=== PATIENT | female | born 1955 | race Caucasian/White ===

== ENCOUNTER 2021-04-25 00:58 | Day surgery (SDC) | payer BC, SELFPAY ==
[2021-04-16 12:53] VITALS: BMI 29.5
[2021-04-25 06:15] VITALS: BP 115/59; PULSE 87; RESP 18; TEMP 36; O2SAT 98; BMI 28.8
[2021-04-25] MEDS: LACTATED RINGERS 1,000 ML 150 ML IV CONT (06:46)
[2021-04-25 06:48] LABS: Glucose Point of Care 147 mg/dl (65-105)
--- NOTE | 2021-04-25 07:11 | WPDANESEPPF ---
Anes - Initial Pre Proc Eval Procedure: Operation Date: 04/25/21 07:30 Proposed Procedures p Screening Colonoscopy - Contreras Quinn MD Date/Time: 04/25/21 07:11 Surgeon: Contreras Quinn MD Pre Op Diagnosis: hx of colon polyps Patient Data Age: 65 Gender: F Height: 1.73 m Weight: 86.1 kg Last Vital Signs Temp 36.0 C L 04/25/21 06:15 Pulse 87 04/25/21 06:15 Resp 18 04/25/21 06:15 BP 115/59 L 04/25/21 06:15 Pulse Ox 98 04/25/21 06:15 Allergies Allergy/AdvReac Type Severity Reaction Status Date / Time codeine Allergy Severe Dizziness Verified 04/25/21 06:28 Sulfa (Sulfonamide Allergy Severe Difficulty Verified 04/25/21 06:28 Antibiotics) Breathing Home Medications Medication Instructions Recorded Confirmed Type atorvastatin 40 mg tablet 40 mg PO DAILY #90 tablet 03/27/19 04/25/21 Rx aspirin 81 mg tablet,delayed 81 mg PO DAILY 11/07/19 04/25/21 History release ergocalciferol (vitamin D2) 1,250 1,250 mcg PO WEEKLY 11/07/19 04/25/21 History mcg (50,000 unit) capsule lisinopril 10 mg tablet 10 mg PO DAILY 11/07/19 04/25/21 History lorazepam 1 mg tablet 1 mg PO TID PRN #90 tablet 01/01/20 04/25/21 Rx carvedilol 3.125 mg PO BID 04/16/21 04/25/21 History clopidogrel 75 mg PO DAILY 04/16/21 04/25/21 History estradiol 1 applic VAGINAL 2XW 04/16/21 04/25/21 History insulin glargine [Lantus Solostar 14 unit SUBCUT QPM 04/16/21 04/25/21 History U-100 Insulin] insulin lispro [Humalog KwikPen See Rx Instructions .ROUTE .COMPLEX 04/16/21 04/25/21 History Insulin] Laboratory Tests 04/25/21 06:37 POC Capillary Glucose 147 mg/dl H mg/dl (65-105) Patient hx anesthesia problems: none Family hx anesthesia problems: none Results Review: All pre-operative results and documents have been reviewed as part of the pre-operative evaluation. [facility] Past Medical History Medical History GIL (generalized anxiety disorder) Hyperlipidemia Hypotension Vaginal prolapse Surgical History Surgical History History of hysterectomy History of neck surgery Family History Family History Mother Family history of lung cancer Social History Social History Smoking packs per day: 1 Smoking cigarettes per day: 20.0 Years smoked: 20 Smoking pack-years: 20.00 Smoking status: Former smoker Tobacco type: cigarettes Second hand tobacco smoke exposure: No Alcohol intake: never Substance use: never Substance use type: does not use Living arrangements: with family 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 Informed Consent: The patient's anesthetic plan and its attendant risks and benefits were discussed with the patient/family/POA. Questions were solicited and answers provided to the satisfaction of the patient/family/POA.
--- NOTE | 2021-04-25 07:49 | WPDGICN ---
Assessment and Plan Assessment and plan (1) History of colon polyps: Code(s): Z86.010 - Personal history of colonic polyps Status: Acute Assessment and Plan: Patient has a history of adenomatous colon polyp removed from the colon in 2014. Plan is for surveillance colonoscopy at this time. Further recommendations will be given after endoscopy. GI Consult Note Consult date/time: 04/25/21 07:49 HPI: Carlos Manuel Will is a 65 year old female Presents for screening colonoscopy . patient has a history of adenomatous colon polyp removed from the colon 5 years ago. Her current weight appetite bowel movements are normal. She denies abdominal pain. She has had no bleeding. Patient does have a past history of diabetes. 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 Family history is noncontributory. Review of Systems Review of Systems: All systems reviewed & are unremarkable except as noted in HPI and below PMFSH Past Medical History Medical History (Updated 04/25/21 @ 07:51 by Contreras Quinn MD) GIL (generalized anxiety disorder) Hyperlipidemia Hypotension Vaginal prolapse Surgical History Surgical History History of hysterectomy History of neck surgery Family History Family History Mother Family history of lung cancer Social History Social History Smoking packs per day: 1 Smoking cigarettes per day: 20.0 Years smoked: 20 Smoking pack-years: 20.00 Smoking status: Former smoker Tobacco type: cigarettes Second hand tobacco smoke exposure: No Alcohol intake: never Substance use: never Substance use type: does not use Living arrangements: with family 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 Gender identity (if verbalized by the patient): Female Spiritual care concerns: No Meds Home Medications and Allergies Home Medications Medication Instructions Recorded Confirmed Type atorvastatin 40 mg tablet 40 mg PO DAILY #90 tablet 03/27/19 04/25/21 Rx aspirin 81 mg tablet,delayed 81 mg PO DAILY 11/07/19 04/25/21 History release ergocalciferol (vitamin D2) 1,250 1,250 mcg PO WEEKLY 11/07/19 04/25/21 History mcg (50,000 unit) capsule lisinopril 10 mg tablet 10 mg PO DAILY 11/07/19 04/25/21 History lorazepam 1 mg tablet 1 mg PO TID PRN #90 tablet 01/01/20 04/25/21 Rx carvedilol 3.125 mg PO BID 04/16/21 04/25/21 History clopidogrel 75 mg PO DAILY 04/16/21 04/25/21 History estradiol 1 applic VAGINAL 2XW 04/16/21 04/25/21 History insulin glargine [Lantus Solostar 14 unit SUBCUT QPM 04/16/21 04/25/21 History U-100 Insulin] insulin lispro [Humalog KwikPen See Rx Instructions .ROUTE .COMPLEX 04/16/21 04/25/21 History Insulin] Allergies Allergy/AdvReac Type Severity Reaction Status Date / Time codeine Allergy Severe Dizziness Verified 04/25/21 06:28 Sulfa (Sulfonamide Allergy Severe Difficulty Verified 04/25/21 06:28 Antibiotics) Breathing Vital Signs Vital Signs - 24 hr 04/25/21 06:15 Temperature 96.8 F L Pulse Rate 87 Respiratory Rate 18 Blood Pressure 115/59 L Pulse Oximetry 98 Exam Narrative: Physical exam reveals patient to be alert. Vital signs stable. HEENT exam is unremarkable. Patient is anicteric. Lungs are clear to auscultation and percussion. Heart is without murmur or extra sounds. Abdominal exam bowel sounds are present soft nontender with no organomegaly. Digital external rectal exam is normal.
[2021-04-25 07:52] VITALS: BP 90/47; PULSE 58; RESP 18; O2SAT 97
[2021-04-25 08:02] VITALS: BP 96/58; PULSE 55; RESP 13; O2SAT 97
[2021-04-25 08:02] LABS: Glucose Point of Care 114 mg/dl (65-105)
[2021-04-25 08:12] VITALS: BP 125/53; PULSE 61; RESP 25; O2SAT 98
== END 2021-04-25 08:18 | disposition home or self-care (01) ==
PROVIDERS: PCP Family Medicine; Visit Provider Internal Medicine Gastroenterology
PROC: 0DJD8ZZ Inspection of Lower Intestinal Tract, Via Natural or Artificial Opening Endoscopic (ICD-10-PCS; CPT 45378; principal; 2021-04-25 07:30)
DX: Z12.11 Encounter for screening for malignant neoplasm of colon (principal); Z86.010 Personal history of colon polyps; K64.8 Other hemorrhoids; K57.30 Diverticulosis of large intestine without perforation or abscess without bleeding; F41.1 Generalized anxiety disorder; E78.5 Hyperlipidemia, unspecified; I95.9 Hypotension, unspecified; Z86.73 Personal history of transient ischemic attack (TIA), and cerebral infarction without residual deficits; Z87.891 Personal history of nicotine dependence; Z79.82 Long term (current) use of aspirin; Z79.4 Long term (current) use of insulin
CPT/HCPCS: 45378; 82948; J2704; J7120

== ENCOUNTER 2024-12-22 23:23 | Emergency (ER) | payer MEDICARE, SELFPAY ==
--- OUTSIDE RECORDS SUMMARY | 2024-12-22 23:25 | XMS_ITS | Encounter Summary ---
Author Organization [facility] Address [facility] [place] [address] Care Team Providers Care Cyber Security Instructor Name Role Phone Luz Maria Jain MD Primary Care Provider + [phone] Donnie Briones MD Unavailable [phone] Micheal Peace MD Primary Care Provider + [phone] Micheal Peace MD Primary Care Provider + [phone] Encounter Details Date Type Department Care Team (Late Contact Info) Description 06/14/2019 Abstract [facility] at [facility], [address] [address] Leti Fung MA Social History Tobacco Use Types Packs/Day Years Used Date Smoking Tobacco: Every Day Cigarettes Smokeless Tobacco: Never Alcohol Use Standard Drinks/Week Comments No 0 (1 standard drink = 0.6 oz pur e alcohol) AUDIT-C Answer Date Recorded Frequency of Alcohol Consumption Never 05/12/2019 Average Number of Drinks Not on file 020 Frequency of Binge Drinking Not on file 07/2019 Comments No Sex and Gender Information Value Date Recorded Sex Assigned at Female 02/17/2020 1:51 AM CDT Legal Sex Female 4:05 PM CDT Gender Identity Female 02/17/2020 1:51 AM CDT Sexual Orientation Not on file documented as of this encounter Plan of Treatment Upcoming Encounters Date Type Department Care Team (Late Contact Info) Description 01/01/2025 8:20 AM CDT Appointment [facility] Mammography [address] [place], [place] [phone] Kamla Murphy MD [address] [place] [phone] documented as of this encounter Procedures Procedure Name Priority Date/Time Associated Diagnosis Comments PROTIME (OUTSIDE LAB) Routine 07/05/2019 CBC (OUTSIDE LAB) Routine 07/05/2019 BASIC METABOLIC PANEL Routine 07/05/2019 PROTIME (OUTSIDE LAB) Routine 06/13/2019 CBC (OUTSIDE LAB) Routine 06/13/2019 BASIC METABOLIC PANEL Routine 06/13/2019 PROTIME (OUTSIDE LAB) Routine 05/30/2017 CBC (OUTSIDE LAB) Routine 05/30/2017 CBC (OUTSIDE LAB) Routine 05/30/2017 BASIC METABOLIC PANEL Routine 05/30/2017 LIPID PANEL Routine 05/30/2017 THYROXINE, FREE (FT4) Routine 05/30/2017 THYROID STIM HORMONE TSH Routine 05/30/2017 documented in this encounter Results * CBC (OUTSIDE LAB) (07/05/2019) WBC 5.3 HGB 13.3 HCT 40.9 PLT 147 07/05/2019 us Doc [facility] Abstract LAB-OUTSIDE/ABSTRACTED Final Result * PROTIME (OUTSIDE LAB) (07/05/2019) PROTIME 9.9 INR 1.0 07/05/2019 us Doc [facility] Abstract LAB-OUTSIDE/ABSTRACTED Final Result * (ABNORMAL) BASIC METABOLIC PANEL (07/05/2019) Pathologist [facility] SODIUM S/P/B 138 POTASSIUM S/P/B 5.1 CO2 23 CHLORIDE S/P/B 107 GLUCOSE 157 mg/dL CALCIUM S/P/B 9.0 BUN 30 CREATININE S/P/B 1.58(A) 0.5 - 1.0 EGFR AFR. AMER. 41 <=90 EGFR NON-AFR. AMER. 35 <=90 07/05/2019 us Doc [facility]AT[facility] Final Result * PROTIME (OUTSIDE LAB) (06/13/2019) Pathologist [facility] PROTIME 10.0 INR 1.0 06/13/2019 Doc [facility] Abstract LAB-OUTSIDE/ABSTRACTED Final Result * CBC (OUTSIDE LAB) (06/13/2019) Pathologist [facility] WBC 4.6 3.8 - 10.8 HGB 12.7 11.7 - 15.5 HCT 38.2 35.0 - 45.0 PLT 195 140 - 400 06/13/2019 Doc [facility] Abstract LAB-OUTSIDE/ABSTRACTED Final Result * (ABNORMAL) BASIC METABOLIC PANEL (06/13/2019) Pathologist [facility] SODIUM S/P/B 140 135 - 146 POTASSIUM S/P/B 5.2 3.5 - 5.3 CO2 25 20 - 32 CHLORIDE S/P/B 107 98 - 110 GLUCOSE 185 65 - 99 mg/dL CALCIUM S/P/B 8.9 8.6 - 10.4 BUN 19 7 - 25 CREATININE S/P/B 1.49(A) 0.5 - 1.0 EGFR AFR. AMER. 43 <=90 EGFR NON-AFR. AMER. 38 <=90 06/13/2019 us Doc [facility] LAB[facility] Final Result * THYROID STIM HORMONE, TSH (05/30/2017) TSH Comment:error,deleted 05/30/2017 us Doc [facility] LAB[facility] Edited Resul t - Final * CBC (OUTSIDE LAB) (05/30/2017) WBC Comment:error,deleted 05/30/2017 us Doc [facility] LAB-OUTSIDE/ABSTRACTED Edite d Result - Final * LIPID PANEL (05/30/2017) CHOLESTEROL Comment:error,deleted 05/30/2017 us Doc [facility] LABORAT[facility] Edited Resul t - Final * THYROXINE, FREE (FT4) (05/30/2017) FREE T4 Comment:error,deleted 05/30/2017 us Doc [facility] LAB[facility]AT[facility] Edited Resul t - Final * CBC (OUTSIDE LAB) (05/30/2017) WBC Comment:error,deleted 05/30/2017 us Doc [facility] LAB-OUTSIDE/ABSTRACTED Edite d Result - Final * PROTIME (OUTSIDE LAB) (05/30/2017) PROTIME Comment:error,deleted 05/30/2017 us Doc [facility] LAB-OUTSIDE/ABSTRACTED Edite d Result - Final * BASIC METABOLIC PANEL (05/30/2017) SODIUM S/P/B Comment:error,deleted 05/30/2017 us Doc [facility] LABORATORY Edited Resul t - Final documented in this encounter Visit Diagnoses Not on filedocumented in this encounter Care Teams Cyber Security Instructor Relationship Specialty Start Date End Date Luz Maria Jain MD PCP - General FAMILY PRACTICE 10/06/18 07/25/20 Micheal Peace MD [address] [address] [place] [address] PCP - General FAMILY PRACTICE 07/26/20 11/29/22 Micheal Peace MD [address] [place] [address] PCP - General FAMILY PRACTICE 11/30/22 Donnie Briones MD [address] [place] [address] [place] [employer] Director CARDIOVASCULAR DISEASE 05/11/19 documented as of this encounter
--- OUTSIDE RECORDS SUMMARY | 2024-12-22 23:25 | XMS_ITS | Encounter Summary ---
Author Organization [facility] Address [facility] [place] [address] Care Team Providers Care Webfocus Developer Name Role Phone Donnie Briones MD Unavailable [phone] Micheal Peace MD Primary Care Provider [phone] Micheal Peace MD Primary Care Provider [phone] Encounter Details Date Type Department Care Team (Late st Contact Info) Description 03/10/2021 Hospital Orders Only [facility] Rail Operations Controller [address] [place], [place] [phone] Ankit Bahena MD [address] [facility] [place] [address] Social History Tobacco Use Types Packs/Day Years Used Date Smoking Tobacco: Former Cigarettes Q uit: 06/10/2019 Smokeless Tobacco: Never Alcohol Use Standard Drinks/Week Comments No 0 (1 standard drink = 0.6 oz pur e alcohol) AUDIT-C Answer Date Recorded Frequency of Alcohol Consumption Never 05/12/2019 Average Number of Drinks Not on file 020 Frequency of Binge Drinking Not on file 07/2019 PHQ-2 Answer Date Recorded PHQ-2 Score - If the patient scores above 3, please move on to questions 3-9 0 03/07/2020 Comments No Sex and Gender Information Value Date Recorded Sex Assigned at Female 02/17/2020 1:51 AM CDT Legal Sex Female 4:05 PM CDT Gender Identity Female 02/17/2020 1:51 AM CDT Sexual Orientation Not on file Occupation Industry Job Start Date Job End Date Not on file Not on file Not on file Not on file COVID-19 Exposure Response Date Recorded In the last month, have you been in contact with someone who was confirmed or suspected to have Coronavirus / COVID-19? No / Unsure 03/11/2021 7:47 AM CDT documented as of this encounter Functional Status * RETIRED Are you deaf or do you have serious difficulty hearing Answer Date of Assessment Author Status No 02/17/2020 2:10 AM CDT Activ e * RETIRED Are you blind or do you have serious difficulty seeing, even when wearing glasses? Answer Date of Assessment Author Status No 02/17/2020 2:10 AM CDT Activ e * Do you have serious difficulty walking or climbing stairs? Answer Date of Assessment Author Status Yes 02/17/2020 2:10 AM CDT Misha Anderson RN Active * Do you have difficulty dressing or bathing? Answer Date of Assessment Author Status No 02/17/2020 2:10 AM SILVIAT Misha Anderson RN Active * Because of a physical, mental, or emotional condition, do you have difficulty doing errands alone such as visiting a doctor's office or shopping? Answer Date of Assessment Author Status No 02/17/2020 2:10 AM SILVIAT Misha Anderson RN Active * Calculated C-SSRS Risk Score (Lifetime/Recent) Answer Date of Assessment Author Status No Risk Indicated 03/11/2021 9:21 AM CDT Brianna Garcia RN Active * [place] Suicide Severity Rating Scale (Screener/Recent Self-Report) Question Answer Date of Assessment Author Status 1. Wish to be (Past 1 Month) No 03/11/2021 9:21 AM CDT Brianna Garcia RN Activ e 2. Non-Specific Active Suicidal Thoughts (Past 1 Month) No 03/11/2021 9:21 AM CDT Brianna Garcia RN Activ e 6. Suicidal Behavior (Lifetime) No 03/11/2021 9:21 AM CDT Brianna Garcia RN Activ e documented as of this encounter Mental Status * Because of a physical, mental, or emotional condition, do you have serious difficulty concentrating, remembering, or making decisions? Answer Entry Date Author Status No 07/14/2019 6:20 PM Goldie Knight RN Active documented in this encounter Plan of Treatment Upcoming Encounters Date Type Department Care Team (Late st Contact Info) Description 01/01/2025 8:20 AM CDT Appointment [facility] Mammography [address] [place], [place] [phone] Kamla Murphy MD [address] [place], [place] [phone] documented as of this encounter Visit Diagnoses Not on filedocumented in this encounter Care Teams Webfocus Developer Relationship Specialty Start Date End Date Micheal Peace MD [address] [facility] [address] [place] [phone] PCP - General FAMILY PRACTICE 07/26/20 11/29/22 Micheal Peace MD [address] [facility] [address] [place] [phone] PCP - General FAMILY PRACTICE 11/30/22 Donnie Briones MD [address] [facility] [address] [place] [phone] Broadbent Pasteuriser Operator CARDIOVASCULAR DISEASE 05/11/19 documented as of this encounter
--- OUTSIDE RECORDS SUMMARY | 2024-12-22 23:25 | XMS_ITS | Encounter Summary ---
Author Organization [facility] Address [facility] [place] [address] Care Team Providers Care Middle School Coach Name Role Phone Luz Maria Jain MD Primary Care Provider + [phone] Donnie Briones MD Unavailable [phone] Micheal Pecae MD Primary Care Provider + [phone] Micheal Peace MD Primary Care Provider + [phone] Encounter Details Date Type Department Care Team (Late Contact Info) Description 05/22/2019 Abstract [facility] at [facility], [address] [address] Leti Fung MA Social History [...] Info) Description 01/01/2025 8:20 AM CDT Appointment [facility] Mammography [address] [place], [place] [phone] Kamla Murphy MD [address] [place] [phone] documented as of this encounter Procedures Procedure Name Priority Date/Time Associated Diagnosis Comments BASIC METABOLIC PANEL Routine 06/06/2019 RENIN ACTIVITY, PLASMA (OUTSIDE LAB) Routine 05/29/2019 BASIC METABOLIC PANEL Routine 05/29/2019 ALDOSTERONE Routine 05/29/2019 CBC (OUTSIDE LAB) Routine 05/24/2019 COMPREHENSIVE METABOLIC PANEL Routine 05/24/2019 LIPID PANEL Routine 05/24/2019 THYROID STIM HORMONE TSH Routine 05/24/2019 COMPREHENSIVE METABOLIC PANEL Routine 04/13/2018 LIPID PANEL Routine 04/13/2018 THYROID STIM HORMONE TSH Routine 04/13/2018 MAGNESIUM Routine 04/13/2018 documented in this encounter Results * (ABNORMAL) BASIC METABOLIC PANEL (06/06/2019) SODIUM S/P/B 138 135 - 146 POTASSIUM S/P/B 4.7 3.5 - 5.3 CO2 23 20 - 32 CHLORIDE S/P/B 109 98 - 110 GLUCOSE 165 65 - 139 mg/dL CALCIUM S/P/B 8.9 8.6 - 10.4 BUN 19 7 - 25 CREATININE S/P/B 1.41(A) 0.5 - 1.0 EGFR AFR. AMER. 46 <=90 EGFR NON-AFR. AMER. 40 <=90 06/06/2019 us Doc [facility] LABORATORY Final Result * RENIN ACTIVITY, PLASMA (OUTSIDE LAB) (05/29/2019) Pathologist [facility] PLASMA RENIN ACTIVITY 54.72 0.25 - 5.82 05/29/2019 us Doc [facility] Abstract LAB-OUTSIDE/ABSTRACTED Final Result * ALDOSTERONE (05/29/2019) Pathologist [facility] ALDOSTERONE S/P/B 73 Comment:upright< or = 28ng/d l, Supine 3-16 ng/dl 05/29/2019 us Doc [facility] LABORATORY Final Result * (ABNORMAL) BASIC METABOLIC PANEL (05/29/2019) Pathologist [facility] SODIUM S/P/B 139 135 - 146 POTASSIUM S/P/B 3.1 3.5 - 5.3 CO2 25 20 - 32 CHLORIDE S/P/B 98 98 - 110 GLUCOSE 230 65 - 99 mg/dL CALCIUM S/P/B 9.4 8.6 - 10.4 BUN 14 7 - 25 CREATININE S/P/B 1.54(A) 0.5 - 1.0 EGFR AFR. AMER. 42 <=90 EGFR NON-AFR. AMER. 36 <=90 05/29/2019 us Doc [facility] LABORATORY Final Result * (ABNORMAL) COMPREHENSIVE METABOLIC PANEL (05/24/2019) Pathologist [facility] SODIUM S/P/B 139 POTASSIUM S/P/B 2.7 3.5 - 5.3 CO2 27 CHLORIDE S/P/B 99 GLUCOSE 189 mg/dL CALCIUM S/P/B 9.5 BUN 20 CREATININE S/P/B 1.66(A) 0.5 - 1.0 EGFR AFR. AMER. 38 <=90 EGFR NON-AFR. AMER. 33 <=90 ALKALINE PHOSPHATASE S/P/B 150 33 - 130 ALT 17 AST 17 BILIRUBIN TOTAL S/P/B 1.0 ALBUMIN S/P/B 4.4 3.5 - 5.0 TOTAL PROTEIN S/P/B 7.0 05/24/2019 us Doc [facility] LAB[facility] Final Result * LIPID PANEL (05/24/2019) Pathologist [facility] CHOLESTEROL 180 HDL 56 TRIGLYCERIDES 156 NON HDL CHOLESTEROL 124 LDL (CALCULATED) 98 05/24/2019 us Doc [facility] LABORAT[facility] Edited Resul t - Final * CBC (OUTSIDE LAB) (05/24/2019) Pathologist [facility] WBC 5.4 HGB 16.0 HCT 45.6 PLT 183 05/24/2019 us Doc [facility] Abstract LAB-OUTSIDE/ABSTRACTED Final Result * THYROID STIM HORMONE, TSH (05/24/2019) Pathologist [facility] TSH 1.43 05/24/2019 us Doc [facility] LABORAT[facility] Final Result * (ABNORMAL) COMPREHENSIVE METABOLIC PANEL (04/13/2018) Pathologist [facility] SODIUM S/P/B 142 POTASSIUM S/P/B 3.9 CO2 26 CHLORIDE S/P/B 111 GLUCOSE 100 mg/dL CALCIUM S/P/B 9.0 BUN 16 CREATININE S/P/B 1.17(A) 0.5 - 1.0 EGFR AFR. AMER. 59 <=90 EGFR NON-AFR. AMER. 51 <=90 ALKALINE PHOSPHATASE S/P/B 110 ALT 12 AST 15 BILIRUBIN TOTAL S/P/B 0.5 ALBUMIN S/P/B 4.1 3.5 - 5.0 TOTAL PROTEIN S/P/B 6.7 GLOBULIN 2.6 04/13/2018 us Doc [facility] LABORAT[facility] Final Result * LIPID PANEL (04/13/2018) Pathologist [facility] CHOLESTEROL 160 HDL 54 TRIGLYCERIDES 73 NON HDL CHOLESTEROL 106 LDL (CALCULATED) 90 04/13/2018 us Doc [facility] LABORAT[facility] Final Result * MAGNESIUM (04/13/2018) MAGNESIUM 2.1 1.5 - 2.5 04/13/2018 us Doc [facility] Final Result * THYROID STIM HORMONE, TSH (04/13/2018) TSH 1.63 04/13/2018 us Doc [facility] LAB[facility]AT[facility] Final Result documented in this encounter Visit Diagnoses Not on filedocumented in this encounter Care Teams Middle School Coach Relationship Specialty Start Date End Date Luz Maria Jain MD PCP - General FAMILY PRACTICE 10/06/18 07/25/20 Micheal Peace MD [address] [facility] [address] [place] [address] PCP - General FAMILY PRACTICE 07/26/20 11/29/22 Micheal Peace MD [address] [facility] [address] [place] [address] PCP - General FAMILY PRACTICE 11/30/22 Donnie Briones MD [address] [facility] [address] [place] [phone] [place] Military Technician CARDIOVASCULAR DISEASE 05/11/19 documented as of this encounter
--- OUTSIDE RECORDS SUMMARY | 2024-12-22 23:25 | XMS_ITS | Encounter Summary ---
Author Organization [facility] Address [facility] [place] [address] Care Team Providers Care Intervention Analyst Name Role Phone Donnie Briones MD Unavailable [phone] Micheal Peace MD Primary Care Provider [phone] Micheal Peace MD Primary Care Provider [phone] Encounter Details Date Type Department Care Team (Late st Contact Info) Description 03/14/2021 Abstract [facility] [address] Leti Fung MA Social History Tobacco Use [...] have Coronavirus / COVID-19? No / Unsure 03/14/2021 8:35 AM CDT documented as of this encounter [...] Author Status No 02/17/2020 2:10 AM CDT Misha Anderson RN Active * Because of a physical, mental, or emotional condition, do you have difficulty doing errands alone such as visiting a doctor's office or shopping? Answer Date of Assessment Author Status No 02/17/2020 2:10 AM CDT Misha Anderson RN Active documented as of this encounter Mental Status * Because of a physical, mental, or emotional condition, do you have serious difficulty concentrating, remembering, or making decisions? Answer Entry Date Author Status No 07/14/2019 6:20 PM TRANSFER PUMPER Goldie Valencia RN Active documented in this encounter Plan of Treatment Upcoming Encounters Date Type Department Care Team (Late st Contact Info) Description 01/01/2025 8:20 AM CDT Appointment [facility] [address], [place] [phone] Kamla Murphy MD [address] [id number] documented as of this encounter Procedures Procedure Name Priority Date/Time Associated Diagnosis Comments BASIC METABOLIC PANEL Routine 03/18/2021 BUN (OUTSIDE LAB) Routine 03/13/2021 HEMATOCRIT Routine 03/13/2021 CREATININE Routine 03/13/2021 documented in this encounter Results * (ABNORMAL) BASIC METABOLIC PANEL (03/18/2021) SODIUM S/P/B 143 POTASSIUM S/P/B 4.6 CO2 26 CHLORIDE S/P/B 110 GLUCOSE 125 mg/dL CALCIUM S/P/B 9.2 BUN 36 CREATININE S/P/B 1.74(A) 0.5 - 1.0 EGFR AFR. AMER. 36 <=90 EGFR NON-AFR. AMER. 31 <=90 03/18/2021 us Doc [facility] Abstract LABORATORY Final Result * HEMATOCRIT (03/13/2021) HCT 38.1 03/13/2021 us Doc [facility] Abstract LABORATORY Final Result * (ABNORMAL) CREATININE (03/13/2021) Pathologist [facility] CREATININE S/P/B 1.90(A) 0.5 - 1.0 EGFR NON-AFR. AMER. 32 <=90 EGFR AFR. AMER. 28 <=90 03/13/2021 us Doc [facility] Abstract LABORATORY Final Result * BUN (OUTSIDE LAB) (03/13/2021) BUN 45 03/13/2021 us Doc [facility] Abstract LAB-OUTSIDE/ABSTRACTED Final Result documented in this encounter Visit Diagnoses Not on filedocumented in this encounter Care Teams Intervention Analyst Relationship Specialty Start Date End Date Micheal Peace MD [address] [phone] PCP - General FAMILY PRACTICE 07/26/20 11/29/22 Micheal Peace MD 3 [facility] [address] [place] [phone] PCP - General FAMILY PRACTICE 11/30/22 Donnie Briones MD 3 [facility] [address] [place] [phone] [facility] Coordinator CARDIOVASCULAR DISEASE 05/11/19 documented as of this encounter
--- OUTSIDE RECORDS SUMMARY | 2024-12-22 23:25 | XMS_ITS | Encounter Summary ---
Author Organization [facility] Address [facility] [place] [address] Care Team Providers Care Purchasing Manager/Sales Name Role Phone Luz Maria Jain MD Primary Care Provider [phone] Donnie Briones MD Unavailable [phone] Micheal Peace MD Primary Care Provider [phone] Micheal Peace MD Primary Care Provider [phone] Encounter Details Date Type Department Care Team (Late st Contact Info) Description 07/12/2019 Hospital Orders Only [facility] Director Quality Assurance [place], [place] [phone] Theo Ordoñez MD Three [facility]. [address] [phone] Social History Tobacco Use Types Packs/Day Years [...] on file documented as of this encounter Functional Status documented as of this encounter Mental Status * Question Answer Entry Date Author Status Because of a physical, mental, or emotional condition, do you have serious difficulty concentrating, remembering, or making decisions? No 07/14/2019 6:20 PM SENIOR BEHAVIORAL SCIENTIST Goldie Valencia R N Active documented in this encounter Plan of Treatment Upcoming Encounters Date Type Department Care Team (Late st Contact Info) Description 01/01/2025 8:20 AM CDT Appointment [facility] [address] [place] [address] Kamla Murphy MD [address] [facility] [address] [place] [address] documented as of this encounter Visit Diagnoses Not on filedocumented in this encounter Care Teams Purchasing Manager/Sales Relationship Specialty Start Date End Date Luz Maria Jain MD PCP - General FAMILY PRACTICE 10/06/18 07/25/20 Micheal Peace MD 3 [facility] [address] [place] [phone] PCP - General FAMILY PRACTICE 07/26/20 11/29/22 Micheal Peace MD 3 [facility] [address] [place] [phone] PCP - General FAMILY PRACTICE 11/30/22 Donnie Briones MD 3 [facility] Suite [facility] [place] [address] [place] [employer] Monitor CARDIOVASCULAR DISEASE 05/11/19 documented as of this encounter
--- OUTSIDE RECORDS SUMMARY | 2024-12-22 23:26 | XMS_ITS | Clinical Summary ---
Author Organization [facility] Address [address] [place] [address] Care Team Providers Care Digester Capper Name Role Phone Donnie Briones MD Unavailable [phone] Micheal Peace MD Primary Care Provider [phone] Allergies Active Allergy Reactions Criticality Noted Date Comments Codeine Dizziness,Vomiting Medium 06/26/2019 Hydrocodone Vomiting,Dizziness,Hives,Unknown Medium Nickel Rash Medium 12/18/2013 Rash Sulfa Antibiotics Hives,Shortness of Breath High Medications lorazepam 1 MG tablet Take 0.5-1 tablets (0.5-1 mg total) by mouth 3 (three) times daily as needed for Anxiety. 04/24/20 19 Active Insulin Pen Needle 31G X 8 MM Misc [The details of the medication are not available because there are pending changes by a home health clinician.] 1 Container 3 02/19/20 Active Additional Information Patient taking differently:1 Device Does not apply QID,Indications: Elevated blood glucose level, Reported on 02/23/2020 Insulin Lispro (HUMALOG KWIKPEN) 200 UNIT/ML Solution Pen-injector Inject 0-16 Units into the skin 3 (three) times daily before meals. To be given before each meal: if Blood Glucose [less than 140: give 0 units], [141-180: give 4 units], [181-220: 6 units], [221-260: 8 units], [261-300: 10 units], [301-350: 12 units], [351-400: 14 units], [Greater than 400: 16 units] 15 mL 02/19/20 20 Active Lancets (ONETOUCH DELICA PLUS [id number]) Misc TEST BLOOD SUGARS 3 TIMES DAILY 02/19/20 Active Blood Glucose Monitoring Suppl (NeuroPaceTOUCH VERIO FLEX SYSTEM) w/Device Kit see administration instructions. 02/19/20 Active ONETOUCH VERIO test strip TEST BLOOD SUGARS 3 TIMES DAILY 02/19/20 Active VITAMIN D2, ERGOCALCIFEROL , 24452 UNITS capsuleIndicat ions:Vitamin D deficiency TAKE 1 CAPSULE BY MOUTH ONCE A WEEK FOR 12 WEEKS 4 capsule 3 10/01/19 21 Active LANTUS SOLOSTAR 100 UNIT/ML injection (PEN) 15 Units daily. 01/14/20 22 Active coenzyme Q-10 (CO Q-10) 100 MG capsule Take 1 capsule (100 mg total) by mouth daily. 30 capsule 02/19/20 22 Active acyclovir (ZOVIRAX) 800 MG tablet Take 1 tablet (800 mg total) by mouth as needed. Active conjugated estrogens (PREMARIN) 0.625 MG/GM vaginal cream Apply pea sized amount to external vulva 2x weekly. 08/26/19 23 Active venlafaxine XR (EFFEXOR-XR) 37.5 MG 24 hr capsule Take 1 capsule every day by oral route for 90 days. 07/15/19 23 Active aspirin EC (ASPIRIN LOW DOSE) 81 MG tabletIndicati ons:Abnormal stress test Take 1 tablet (81 mg total) by mouth daily. 90 tablet 1 07/13/19 24 Active atorvastatin (LIPITOR) 80 MG tablet Take 1 tablet (80 mg total) by mouth daily. 90 tablet 1 07/13/19 24 Active carvedilol (COREG) 3.125 MG tablet Take 1 tablet (3.125 mg total) by mouth 2 (two) times daily. 180 tablet 1 07/13/19 24 Active clopidogrel (PLAVIX) 75 MG tabletIndicati ons:Abnormal stress test Take 1 tablet (75 mg total) by mouth daily. 90 tablet 1 07/13/19 24 Active lisinopril (PRINIVIL) 10 MG tablet Take 1 tablet (10 mg total) by mouth daily. 90 tablet 1 07/13/19 24 Active nitroglycerin (NITROSTAT) 0.[address] 1 tablet (0.4 mg total) under the tongue every 5 (five) minutes as needed for Chest Pain. Maximum of 3 doses, then call 911 25 tablet 3 07/13/19 24 Active Active Problems Problem Noted Date Diagnosed Date Mitral valve prolapse 2020 Mixed hyperlipidemia 07/25/2020 Nonsustained paroxysmal vent ricular tachycardia ([facility]) 07/25/2020 Supraventricular tachycardia, nonsustained ([facility]) 07/25/2020 Type 2 diabetes mellitus wit h kidney complication, without long-term current use of insulin ([facility]) 02/23/2020 CVA (cerebral vascular accident) ([facility]/ C) 02/19/2020 PIERRE (acute kidney injury) 02/17/2020 Coronary artery disease invo lving lower sioux coronary artery of lower si[place] heart without angina pectoris 09/07/2019 Nonrheumatic mitral valve regurgitation 06/16/19 20 Stage 3 chronic kidney disease 06/16/2019 Abnormal stress electrocardiogram test 0 Hypertension 05/12/2019 Heart murmur 05/12/2019 Overweight (BMI 25.0-29.9) 05/12/2019 History of mitral valve prolapse 05/12/2019 PVC's (premature ventricular contractions) 05/12 Palpitations 05/12/2019 Abnormal EKG 05/12/2019 Immunizations Immunization Administration Dates Next Due Fluzone 6 Months+ Quad (0.5 mL Prefilled Syringe) 02/17/2020 Hepatitis B 01/08/1995,11/24/1994 Hepatitis B (Generic: Adult) 01/08/1995,11/24/18 95 Influenza (Generic) 03/03/2021 Influenza Adult (Generic) 03/03/2021 Td, Adsorbed, Preservative F ree, Adult Use, Lf Unspecified 10/18/2015 Tdap (Generic) 09/14/2016,10/18/2015,10/27/2005 Family History Medical History Relation Comments Heart Disease Father Heart Disease Mother Lung Cancer Mother Stroke Mother Relation Status Comments Father Mother Social History Tobacco Use Types Packs/Day Years Used Date Smoking Tobacco: Former Cigarettes Q uit: 06/10/2019 Smokeless Tobacco: Never Tobacco Cessation:Counseling Given: Not Answered Alcohol Use Standard Drinks/Week Comments No 0 [...] file Not on file Not on file Last Filed Vital Signs Vital Sign Reading Time Taken Comments Blood Pressure 124/72 06/25/2023 11:04 AM TECHNICAL REP Pulse 68 06/25/2023 11:04 AM TECHNICAL REP Temperature 36.5 C (97.7 F) 06/26/2022 8:40 AM TECHNICAL REP Respiratory Rate 16 06/26/2022 8:40 AM TECHNICAL REP Oxygen Saturation 98% 06/25/2023 11: 04 AM TECHNICAL REP Inhaled Oxygen Concentration - - Weight 96.1 kg (211 lb 14.4 oz) 024 11:04 AM TECHNICAL REP Height 172.7 cm (5' 8) 06/25/2023 11:0 4 AM TECHNICAL REP Body Mass Index 32.22 06/25/2023 11:04 AM TECHNICAL REP Plan of Treatment Upcoming Encounters Date Type Department Care Team (Late st Contact Info) Description 01/01/2025 8:20 AM CDT Appointment [facility] [address] [place] [place], [place] [phone] Shane Murphy MD [address] [phone] Health Maintenance Due Date Last Done Comments ASCVD Statin 1955 Colorectal Cancer Screening Colonoscopy (10 Years) 1957 Kidney Health Evaluation 1957 Diabetes: Retinopathy Eye Exam 11/21/1975 Hepatitis C 11/21/1975 Pneumococcal Vaccine: 50+ Years (1 of 2 - PCV) 1976 Zoster Vaccines (1 of 2) 11/21/2007 RSV Immunization or 60+ Years (1 - Risk 60-74 years 1-dose series) 2017 Hemoglobin A1C 11/03/2022 05/05/2022, 07/0 05/2021, 07/09/2021, Additional history exists Annual Medicare Wellness Visit 2022 Dexa Scan (General) 2022 ASCVD LDL 12/09/2023 12/08/2022, 05/10, 05/25/2022, Additional history exists Lipid Panel 12/09/2023 12/08/2022, 05/10, 05/25/2022, Additional history exists COVID-19 Vaccine ( season) 2024 02/06/2022, 08/28/2021, 08/24/2020, Additional history exists Mammogram Screening 12/01/2025 12/02/2023, 11/30/2022, 12/23/2021, Additional history exists DTaP, Tdap and Td Vaccines (5 - Td or Tdap) 09/14/2026 09/14/2016, 10/18/2015, 10/18/2015, Additional history exists Meningococcal B Vaccine Aged Out No l onger eligible based on patient's age to complete this topic Meningococcal Vaccine Aged Out No anu jcarlos eligible based on patient's age to complete this topic RSV Immunizations Under 20 Months Aged Out No longer eligible based on patient's age to complete this topic Procedures Procedure Name Priority Date/Time Associated Diagnosis Comments MG SCREENING W MEHRDAD SADIA DIGI Routine 12/02/2023 8:46 AM CDT Encounter for screening mammogram for malignant neoplasm of breast LIPID PANEL Routine 12/08/2022 8:09 AM CDT Coronary artery disease involving lower sioux coronary artery of lower [place] heart without angina pectoris Mixed hyperlipidemia Hypertension, unspecified type HEMOGLOBIN, GLYCOSYLATED Routine 06/27/2020 from Last 3 Months or Most Recently Relevant to Health Maintenance Results * MG SCREENING W MEHRDAD SADIA DIGI (12/02/2023 8:46 AM CDT) Anatomical Region Laterality Modality Breast Bilateral Mammography 12/02/2023 9:44 AM CDT Impressions 12/02/2023 9:46 AM CDT IMPRESSION: No suspicious mammographic findings. Recommendation: 1. Routine Screening, Bilateral Assessment: ACR BI-RADS 1 - NEGATIVE Ordered By: SHANE MURPHY Interpreted By: Tera Ribera MD, 12/02/2023 9:44 AM Narrative 12/02/2023 9:46 AM CDT Examination: Screening bilateral mammogram Exam Date: 12/02/2023 8:23 AM Clinical history: Routine screening. Comparison: 11/30/2022, 12/23/2021 Technique: Digital screening mammography of both breasts was performed. Breast tomosynthesis acquisitions were obtained and reviewed. This study was read with the assistance of a computer-aided detection system. Tissue density: The breast tissue is heterogeneously dense, which may obscure small masses. Findings: No suspicious masses, malignant appearing calcifications, skin thickening or other abnormalities are present. No significant change from the prior exam. Shane Murphy MD MAMMO Final Result * (ABNORMAL) LIPID PANEL (12/08/2022 8:09 AM CDT) CHOLESTEROL 160 <200 MG/DL 12/08/2022 8:54 AM CDT [facility] TRIGLYCERIDES 164(H) <150 MG/DL 12/08/2022 8:54 AM CDT [facility] HDL 50 >40.0 MG/DL 12/08/2022 8:54 AM CDT [facility] LDL (CALCULATED) 77 <100 MG/DL 12/08/2022 8:54 AM CDT [facility] NON HDL CHOLESTEROL 110 <130 MG/DL 12/08/2022 8:54 AM CDT [facility] CHOL/HDL RATIO 3.2 0.0 - 4.5 12/08/2022 8:54 AM CDT [facility] VLDL CALCULATION 33 5 - 55 MG/DL 12/08/2022 8:54 AM CDT [facility] LIPID INTERPRETATION 12/08/2022 8:54 AM CDT [facility] Comment: NIH CONCENSUS REPORT RECOMMENDATIONS: ADULT CHILD LOW RISK: CHOLESTEROL <200 <170 TRIGLYCERIDE <150 --- HDL >=60 --- LDL <100 <110 BORDERLINE: CHOLESTEROL 200-239 170-199 TRIGLYCERIDE 150-199 --- HDL 40-59 --- LDL 100-159 110-129 HIGH RISK: CHOLESTEROL >=240 >=200 TRIGLYCERIDE >=200 --- HDL <40 --- LDL >=160 >=130 12/08/2022 8:09 AM CDT Donnie Briones MD LABORATORY Final Result [facility] [address] [place] [address], * HEMOGLOBIN, GLYCOSYLATED (06/27/2020) HGB A1C 6.1 % 06/27/2020 Doc [facility] Abstract LABORATORY Final Result from Last 3 Months or Most Recently Relevant to Health Maintenance Insurance [facility] Advance Directives * Full Code (Latest Code Status on File) Date Activated Date Inactivated Comments 03/11/2021 1:26 PM 03/11/2021 5:58 PM * Full Code Date Activated Date Inactivated Comments 03/11/2021 1:25 PM 03/11/2021 1:26 PM * Full Code Date Activated Date Inactivated Comments 06/21/2020 1:53 PM 03/11/2021 7:52 AM * Full Code Date Activated Date Inactivated Comments 02/17/2020 3:09 AM 02/19/2020 6:10 PM * Full Code Date Activated Date Inactivated Comments 07/14/2019 3:37 PM 07/14/2019 9:15 PM Care Teams Digester Capper Relationship Specialty Start Date End Date Micheal Peace MD 3 [facility] [address] [place] [phone] PCP - General FAMILY PRACTICE 11/30/22 Donnie Briones MD 3 [facility] [address] [place] [phone] Adrian Pot Tender CARDIOVASCULAR DISEASE 05/11/19
--- OUTSIDE RECORDS SUMMARY | 2024-12-22 23:26 | XMS_ITS | Continuity of Care Document ---
Author Organization [facility] Address [address] [place] [address] [address] [place] [address] Phone Care Team Providers Care Area Safety Manager Name Role Phone Ramon OD, Contreras Unavailable Unavailable Advance Directives Directive Yes / No Effective Date File Name No Information Encounters Encounter Description Practice Location Reason(s) For Visit Diagnoses Date Provider Providers Copied on Encounter [facility], [address] [place] [address] [address], [place], [place], [id number], [place] tel:[phone] [facility] No Information 8-[address] Ramon OD Contreras. [address] , [address], [place], [address], [place]. tel:[phone] Family History Family Member Type Diagnosis Age At Onset No Information Payers Payer name Insurance type Covered green party ID Authoriza tion(s) [employer] [place] [id number] Social History Type Description Quantity Date Captured Comments Sex Female Smoking Status No Information Chief Complaint And Reason For Visit No Information Reason For Referral Reason For Referral No Information History Of Present Illness Encounter Date Complaint History Of Prese nt Illness No Information Functional Status Date Functional Assessmen t No Information Instructions Date Instruction Additional Infor mation No Information Assessments Type Assessment Date No Information Patient Care Teams Name Effective Dates (start - stop) Status Members No Information
--- OUTSIDE RECORDS SUMMARY | 2024-12-22 23:26 | XMS_ITS | Encounter Summary ---
Author Organization [facility] Address [facility] [place] [address] Care Team Providers Care Splicing Technician Name Role Phone Donnie Briones MD Unavailable [phone] Micheal Peace MD Primary Care Provider [phone] Micheal Peace MD Primary Care Provider [phone] Encounter Details Date Type Department Care Team (Late st Contact Info) Description 05/26/2022 Abstract [facility] [address] Leti Fung MA Social History Tobacco Use [...] Exposure Response Date Recorded In the last 10 days, have yo u been in contact with someone who was confirmed or suspected to have Coronavirus/COVID-19? No / Unsure 05/27/2022 9:57 AM ABRASIVE WHEEL MOLDER documented as of this encounter Functional Status [...] Date Author Status No 07/14/2019 6:20 PM ABRASIVE WHEEL MOLDER Goldie Valencia RN Active documented in this encounter Plan of Treatment Upcoming Encounters Date Type Department Care Team (Late st Contact Info) Description 01/01/2025 8:20 AM CDT Appointment [facility] [address] [place], [place] [phone] Kamla Murphy MD [address] [address] documented as of this encounter Procedures Procedure Name Priority Date/Time Associated Diagnosis Comments COMPREHENSIVE METABOLIC PANEL Routine 05/25/2022 COMPREHENSIVE METABOLIC PANEL Routine 05/25/2022 LIPID PANEL Routine 05/25/2022 LIPID PANEL Routine 05/25/2022 documented in this encounter Results * (ABNORMAL) COMPREHENSIVE METABOLIC PANEL (05/25/2022) SODIUM S/P/B 141 POTASSIUM S/P/B 4.7 CO2 25 CHLORIDE S/P/B 109 GLUCOSE 115 mg/dL CALCIUM S/P/B 9.4 BUN 30 CREATININE S/P/B 1.81(A) 0.5 - 1.0 EGFR NON-AFR. AMER. 31 <=90 ALKALINE PHOSPHATASE S/P/B 94 ALT 21 AST 21 BILIRUBIN TOTAL S/P/B 0.5 ALBUMIN S/P/B 4.6 3.5 - 5.0 TOTAL PROTEIN S/P/B 7.0 GLOBULIN 2.4 05/25/2022 us Default History Genericprovider LABORATORY Final Result * LIPID PANEL (05/25/2022) CHOLESTEROL 152 HDL 46 TRIGLYCERIDES 158 NON HDL CHOLESTEROL 106 LDL (CALCULATED) 81 05/25/2022 us Default History Genericprovider LABORATORY Final Result * (ABNORMAL) COMPREHENSIVE METABOLIC PANEL (05/25/2022) SODIUM S/P/B 141 POTASSIUM S/P/B 4.7 CO2 25 CHLORIDE S/P/B 109 GLUCOSE 115 mg/dL CALCIUM S/P/B 9.4 BUN 30 CREATININE S/P/B 1.81(A) 0.5 - 1.0 EGFR NON-AFR. AMER. 31 <=90 ALKALINE PHOSPHATASE S/P/B 94 ALT 21 AST 21 BILIRUBIN TOTAL S/P/B 0.5 ALBUMIN S/P/B 4.6 3.5 - 5.0 TOTAL PROTEIN S/P/B 7.0 GLOBULIN 2.4 05/25/2022 us Default History Genericprovider LABORATORY Final Result * LIPID PANEL (05/25/2022) CHOLESTEROL 152 HDL 46 TRIGLYCERIDES 158 NON HDL CHOLESTEROL 106 LDL (CALCULATED) 81 05/25/2022 us Default History Genericprovider LABORATORY Final Result documented in this encounter Visit Diagnoses Not on filedocumented in this encounter Care Teams Splicing Technician Relationship Specialty Start Date End Date Micheal Peace MD 3 [facility] [address] [place] [phone] PCP - General FAMILY PRACTICE 07/26/20 11/29/22 Micheal Peace MD [address] [phone] PCP - General FAMILY PRACTICE 11/30/22 Donnie Briones MD 3 [facility] [address] [place] [phone] [facility] Clinical Manager CARDIOVASCULAR DISEASE 05/11/19 documented as of this encounter
--- OUTSIDE RECORDS SUMMARY | 2024-12-22 23:26 | XMS_ITS | Clinical Summary ---
Author Organization [facility] [place] Address [address] [place] [address] Care Team Providers Care Production Support Manager Name Role Phone Micheal Peace MD Primary Care Provider [phone] Allergies Active Allergy Reactions Criticality Noted Date Comments Codeine Dizziness,Vomiting Medium 06/26/2019 Ezetimibe Nausea only Medium 07/28/2024 Hydrocodone Hives,Dizziness,Unknown Medium 07/25/2019 Nickel Rash Medium 12/18/2013 Rash Sulfa (Sulfonamide Antibiotics) Hives,Shortness of breath High 06/26/2019 Medications clopidogreL (PLAVIX) 75 mg tablet Take 1 tablet (75 mg total) by mouth daily 02/19/20 20 Active atorvastatin (LIPITOR) 80 mg tablet Take 1 tablet (80 mg total) by mouth daily 02/19/20 20 Active carvediloL (COREG) 3.125 mg tablet Take 1 tablet (3.125 mg total) by mouth 2 (two) times a day 02/23/20 20 Active OneTouch Delica Plus Lancet 33 gauge misc TEST BLOOD SUGARS 3 TIMES DAILY 02/19/20 20 Active ergocalciferol (VITAMIN D) 50,000 unit capsule Take 1 capsule (50,000 Units total) by mouth once a week 12 capsule 3 09/13/19 21 Active Additional Information Patient not taking.Reported on 09/22/2024 pen needle, diabetic (BD Ultra-Fine Short Pen Needle) 31 gauge x 09/22 needleIndicatio ns:Type 2 diabetes mellitus with stage 3b chronic kidney disease, with long-term current use of insulin ([facility]) 1 Device by Not Applicable route 4 (four) times a day 100 each 1 05/05/20 21 Active azelastine (ASTELIN) 137 mcg (0.1 %) nasal spray as needed 07/15/19 22 Active OneTouch Verio test strips stripIndication s:Type 2 diabetes mellitus with stage 3b chronic kidney disease, with long-term current use of insulin (HCC) Pt to test blood sugar five times a day 500 each 3 07/29/19 22 Active ketoconazole (NIZORAL) 2 % cream MIX WITH MOMETASONE AND APPLY ONCE DAILY TO RASH NOT MORE THAN 5 DAYS IN A WEEK 12/04/19 22 Active nitroglycerin (NITROSTAT) 0.[address] 1 tablet (0.4 mg total) under the tongue every 5 (five) minutes as needed for chest pain 30 tablet 01/16/20 22 Active flash glucose scanning reader (FreeStyle Jaleel 14 Day [place]) miscIndications :Type 2 diabetes mellitus with stage 3b chronic kidney disease, with long-term current use of insulin ([facility]) As dir 1 each 3 04/14/20 22 Active flash glucose sensor (FreeStyle Jaleel 2 Sensor) kitIndications: Type 2 diabetes mellitus with stage 3b chronic kidney disease, without long-term current use of insulin ([facility]) As directed 1 kit 04/21/20 22 Active venlafaxine XR (EFFEXOR-XR) 37.5 mg 24 hr capsuleIndicati ons:Generalized anxiety disorder,Major depressive disorder, recurrent episode, moderate (HCC) Take 1 capsule (37.5 mg total) by mouth daily 30 capsule 1 07/15/19 23 Active blood-glucose sensor deviceIndicatio ns:Type 2 diabetes mellitus with stage 3b chronic kidney disease, with long-term current use of insulin ([facility]) Jaleel 3 Apply sensor once every 2 weeks 4 each 3 07/15/19 23 Active Additional Information Patient not taking.Reported on 09/22/2024 acyclovir (ZOVIRAX) 800 mg tablet Take 1 tablet (800 mg total) by mouth as needed Active evolocumab (REPATHA SURECLICK SUBQ) Inject under the skin every 14 (fourteen) days Active clobetasoL (TEMOVATE) 0.05 % ointment Apply BID to affected areas of the vulva. 45 g 1 07/29/19 25 Active Additional Information Patient taking differently: Using once or twice a week as needed, Reported on 09/22/2024 busPIRone (BUSPAR) 7.5 mg tablet Take 1 tablet (7.5 mg total) by mouth 2 (two) times a day 09/19/19 25 Active Mounjaro 5 mg/0.5 mL pen injector injection INJECT 5 MG SUBCUTANEOUSLY WEEKLY 09/06/19 25 Active lactobacillus combination no.9 4 billion cell capsule Take by mouth Act damaso Active Problems Problem Noted Date Diagnosed Date Generalized anxiety disorder 07/14/2022 Major depressive disorder, recurrent episode, mo derate 04/14/2022 Anxiety 04/14/2022 Angina pectoris, unspecified 01/15/2022 Orthostatic hypotension 01/06/2022 Vertigo 01/06/2022 COVID-19 05/14/2021 Urinary urgency 04/23/2021 Assessment & Plan (04/23/2021 9:22 AM [employer]): - patient reports satisfactory improvement in her urinary symptoms since decreasing fluid intake - she was advised to call the office if any worsening in symptoms Constipation 04/23/2021 Assessment & Plan (04/23/2021 9:12 AM [employer]STING): - per patient well managed with stool softener, we discussed switching to MiraLax. Patient would prefer to continue with stool softener at this time. - she is scheduled for colonoscopy this Wednesday and will discuss further with her GI Vaginal atrophy 04/23/2021 Assessment & Plan (04/23/2021 9:23 AM [employer] JUMP[employer]STING): - she was advised to continue twice weekly VET - of note, she reports being treated for 2 UTIs based on office UA by her PCP since last being seen. However, feels that occurrence of UTI symptoms is less since starting VET. 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 05/09/2020 Mitral regurgitation 05/09/2020 Type 2 diabetes mellitus wit h stage 3b chronic kidney disease, without long-term current use of insulin 02/23/2020 CVA (cerebral vascular accident) 02/19/2020 PIERRE (acute kidney injury) 02/17/2020 Coronary artery disease involving wales heart 0 09/07/2019 Hypertension 05/12/2019 Encounters Date Type Department Care Team Description 10/24/2024 Results Follow-Up [facility] Nephrology at [address] [address] Abhijeet Manjarrez MD Basic metabolic panel 10/06/2024 Results Follow-Up [facility] Obstetrical Gynecology [address] [place] [phone] Amy Manjarrez MD Vitamin D 25 hydroxy 10/05/2024 10:30 AM CDT Lab [facility] Office Building [address] [place] [id number] Low bone mass 09/22/2024 10:45 AM CDT Office Visit [facility] Nephrology at [address] [address] Abhijeet Manjarrez MD Stage 3b chronic kidney disease (HCC) (Primary Dx); Renal artery stenosis; Benign hypertensive kidney disease with chronic kidney disease stage I through stage IV, or unspecified(403.10); Secondary hyperparathyroidism; Type 2 diabetes mellitus with stage 3b chronic kidney disease, with long-term current use of insulin (HCC) from Last 3 Months Immunizations Immunization Administration Dates Next Due Hep B Vaccine 01/08/1995,11/24/1994 Hep B, Unspecified 01/08/1995,11/24/1994 Influenza, Quadrivalent, Andreina l Culture-based MDCK, Preservative Free, Antibiotic Free, Intramuscular 02/17/2022 Influenza, Quadrivalent, Spl it, Preservative Free, Intramuscular 03/03/2021,02/17/2020 Influenza, Unspecified 03/03/2021 Pfizer SARS-CoV-2 Monovalent Vaccination (12+ Yrs) PURPLE 08/28/2021 Pfizer Sars-Cov-2 Bivalent V accination (12+ YRS) 02/06/2022 TD Preservative Free 10/18/2015 Td, Adsorbed, Preservative F ree, Adult Use, Lf Unspecified 10/18/2015 Tdap 09/14/2016,10/18/2015,10/27/2005 Surgical History Surgery Date Site/Laterality Comments NECK SURGERY HYSTERECTOMY VAGINAL PROLAPSE REPAIR Medical History Medical History Date Comments Depression Diabetes mellitus (HCC) Anxiety Hypertension Covid-19 Family History Medical History Relation Name Comments No Known Problems Daughter Heart disease Father No Known Problems Maternal Grandfather No Known Problems Maternal Grandmother COPD Mother Heart disease Mother Lung cancer Mother Stroke Mother No Known Problems Paternal Grandfather No Known Problems Paternal Grandmother No Known Problems Son Breast cancer Neg Hx Ovarian cancer Neg Hx Uterine cancer Neg Hx Relation Name Status Comments Daughter Alive Father Maternal Grandfather Maternal Grandmother Mother Paternal Grandfather Paternal Grandmother Son Alive Social History Tobacco Use Types Packs/Day Years Used Date Smoking Tobacco: Former Cigarettes 1.5 30 0 06/11/1989 - 06/11/2019 Smokeless Tobacco: Never Tobacco Cessation:Counseling Given: Not Answered Alcohol Use Standard Drinks/Week Comments Never 0 (1 standard drink = 0.6 oz pur e alcohol) AUDIT-C Answer Date Recorded Q1: How often do you have a drink containing alc ohol? Never 03/21/2024 Average Number of Drinks Not on file 024 Frequency of Binge Drinking Not on file 03/10 PHQ-2 Answer Date Recorded PHQ-2 Total Score (If total score is 3 or more points, staff should administer the PHQ-9) 4 07/14/2022 Comments No Sex and Gender Information Value Date Recorded Sex Assigned at Not on file Legal Sex Female 8:34 AM [employer] Gender Identity Female 07/22/2022 8:47 PM CDT Sexual Orientation Straight 07/22/2022 8: 47 PM CDT Obstetrics History Para Term AB IAB SAB Ectopic Multiple Livin g Live Births 2 2 2 2 2 Date Outcome GA Total Labor Labor/2nd/3rd Weight Sex Type Anes PTL Joselyn A1 A5 Name Clin Term Vag-S pont Living Term Vag-S pont Living Comments 04/30/40 hyst Last Filed Vital Signs Vital Sign Reading Time Taken Comments Blood Pressure 126/81 09/22/2024 10:27 AM CDT Pulse 76 09/22/2024 10:27 AM CDT Temperature 36.5 C (97.7 F) 09/22/2024 10:27 AM CDT Respiratory Rate 18 07/14/2022 7:56 AM [employer] Oxygen Saturation 98% 07/14/2022 7:56 AM [employer] Inhaled Oxygen Concentration - - Weight 94.4 kg (208 lb 3.2 oz) 09/22/2024 10:27 AM CDT Height 170.2 cm (5' 7) 09/22/2024 10:27 AM CDT Body Mass Index 32.61 09/22/2024 10:27 AM CDT Plan of Treatment Health Maintenance Due Date Last Done Comments Fall Risk Assessment 1955 Foot Exam 1955 Pneumococcal vaccine 65+ (1 of 2 - PCV) 1976 Lung Cancer Screening 11/21/2007 Zoster Vaccine (1 of 2) 11/21/2007 Hemoglobin A1C 11/03/2022 05/05/2022, 07/0 05/2021, 07/09/2021, Additional history exists Dilated Eye Exam 03/30/2023 03/30/2022, 04/28/2021 Depression Screening 07/15/2023 07/14/2022, 07/14/2022, 05/19/2021, Additional history exists Lipid Panel 12/09/2023 12/08/2022, 05/10, 11/07/2021, Additional history exists Covid-19 Vaccine (2023-2 5 season) 2024 02/06/2022, 08/28/2021, 08/28/2021, Additional history exists Breast Cancer Screening-Mammogram 12/01/2024 12/02/2023, 12/02/2023, 11/30/2022, Additional history exists Influenza Vaccine (#1) 2025 , 03/03/2021, 03/03/2021, Additional history exists Albumin Creatinine Ratio, Urine 03/27/2025 03/27/2024, 06/16/2023, 12/01/2022, Additional history exists Well Visit 65+ 07/28/2025 07/28/2024, 07/08, 07/24/2022, Additional history exists eGFR 10/23/2025 10/23/2024, 09/07, 03/27/2024, Additional history exists Osteoporosis Screening-Bone Density Scan 08/16/2026 08/16/2024 DTaP/Tdap/Td Vaccine (6 - Td or Tdap) 09/14/2026 09/14/2016, 10/18/2015, 10/18/2015, Additional history exists Colon Cancer Screening-Colonoscopy 04/25/20282020 Hepatitis B Screening Completed 01/08/1995 , 01/08/1995, 11/24/1994, Additional history exists Hepatitis C Screening Completed 04/23/2021 Procedures Procedure Name Priority Date/Time Associated Diagnosis Comments BASIC METABOLIC PANEL Routine 10/23/2024 6:08 AM CDT Stage 3b chronic kidney disease (HCC) VITAMIN D 25 HYDROXY Routine 10/05/2024 10:45 AM CDT Low bone mass DEXA AXIAL SKELETON BONE DENSITY 1 OR MORE SITES Schedule Routine, Read Routine (OP Routine) 08/16/2024 7:45 AM CDT Screening for osteoporosis Unspecified menopausal and perimenopausal disorder ALBUMIN CREATININE RATIO, URINE Routine 03/27/2024 6:04 AM [employer] Stage 3b chronic kidney disease (HCC) HEMOGLOBIN A1C Routine 05/05/2022 6:16 AM [employer] Type 2 diabetes mellitus with stage 3b chronic kidney disease, with long-term current use of insulin (HCC) DIABETIC EYE EXAM Routine 03/30/2022 HM MAMMOGRAPHY Routine 12/23/2021 LIPID PANEL Routine 11/07/2021 9:08 AM CDT Dyslipidemia with elevated low density lipoprotein (LDL) cholesterol and abnormally low high density lipoprotein cholesterol COLONOSCOPY Routine 04/25/2021 HEPATITIS C ANTIBODY Routine 04/23/2021 9:32 AM [employer] Encounter for hepatitis C screening test for low risk patient from Last 3 Months or Most Recently Relevant to Health Maintenance Results * (ABNORMAL) Basic metabolic panel (10/23/2024 6:08 AM CDT) Glucose 106(H) 65 - 99 mg/dL [facility] Comment: Fasting reference interval For someone without known diabetes, a glucose value between 100 and 125 mg/dL is consistent with prediabetes and should be confirmed with a follow-up test. BUN 15 7 - 25 mg/dL [facility] Creatinine 1.90(H) 0.50 - 1.05 mg/dL [facility] eGFR 29(L) > OR = 60 mL/min/1.7 3m2 [facility] BUN/creat ratio 8 6 - 22 (calc) [facility] Sodium 142 135 - 146 mmol/L [facility] Potassium, pl 4.2 3.5 - 5.3 mmol/L [facility] Chloride 105 98 - 110 mmol/L [facility] CO2 29 20 - 32 mmol/L [facility] Calcium 9.3 8.6 - 10.4 mg/dL [facility] Blood 10/23/2024 6:08 AM CDT 10/23/2024 6:09 AM CDT Narrative [facility] - 10/24/2024 3:19 AM CDT FASTING:YES FASTING: YES us Abhijeet Manjarrez MD LAB BLOOD ORDERABLES Final Re sult [facility] [address] [phone] * (ABNORMAL) Vitamin D 25 hydroxy (10/05/2024 10:45 AM CDT) Vitamin D 25-OH 21.0(L) 30.0 - 80.0 ng/mL Blood 10/05/2024 10:4 5 AM CDT 10/05/2024 2:26 PM CDT us Kamla Murphy MD LAB BLOOD ORDERABLES Zari leonardo Result [facility] [address] [facility] Department [place] [address] * Dexa Axial Skeleton Bone Density 1 Or 2 Site (08/16/2024 7:45 AM CDT) Anatomical Region Laterality Modality Body N/A Mammography 08/17/2024 3:47 PM CDT Narrative 08/17/2024 3:48 PM CDT EXAM DESCRIPTION: DEXA AXIAL SKELETON BONE DENSITY 1 OR MORE SITES REASON FOR STUDY: 68 y/o year old F with given history of: Postmenopausal status. Patient has taken/is taking hormone replacement therapy. 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 CLINICAL INFORMATION: Current height: 67.5 inches Maximum height: 68 inches Weight: 225 pounds Risk factors: None COMPARISON: None available FINDINGS: AP LUMBAR SPINE L1-L4: Total BMD is 0.956 g/cm2 T-score is -0.8 LEFT HIP: Total BMD is 0.693 g/cm2 T-score is -2.0 Femoral neck BMD is 0.607 g/cm2 T-score is -2.2 FRAX: 10 year risk for a major osteoporotic fracture is 11 %, 10 year risk for a hip fracture is 1.8 % Per National Osteoporosis Foundation guidelines, this patient does not meet the criteria for pharmacological treatment of patients with FRAX 10 year major osteoporotic fracture risk scores of = or greater than 20% or a 10 year probability of a hip fracture = or greater than 3%, to reduce fracture risk. Additional factors such as frequent falls are not represented in FRAX and warrant individual clinical judgment. IMPRESSION: Low bone mass REFERENCE: Bone mineral density: T-Score: Normal (T-score above or = -1.0) Low bone mass (T-score between -1.0 and -2.5) replaces the previously used term osteopenia Osteoporosis (T-score = or below -2.5) Z-Score: Within the expected range for age (Z-score above -2.0) Below the expected range for age (Z-score is -2.0 or below) Please see below follow up recommendations. Medical evaluation for secondary causes of low bone mineral density may be appropriate. FRAX is a World Health Organization validated fracture risk assessment tool that calculates a person's 10 year probability of a major osteoporosis related fracture and hip fracture. According to the National Osteoporosis Foundation guidelines, postmenopausal women and men age 50 or older with low bone mass and a 10 year probability of a major osteoporosis related fracture = or greater than 20% or a 10 year probability of a hip fracture = or greater than 3% should be considered for pharmacological treatment for the prevention of osteoporosis. For further information, including treatment recommendations, please refer to the 2019 ISCD Official Positions (http://www.iscd.org) and the NOF's Clinician's Guide to Prevention and Treatment of Osteoporosis (http://www.nof.org/professionals/clinical-guidelines) THIS IS AN ELECTRONICALLY VERIFIED FINAL REPORT 08/17/2024 3:48 PM - Electronically signed by Pascale Desir M.D. TW: TW Report ID: [id number] Reading Location: [place] [address] Procedure Note Pascale Desir MD - 08/17/2024 EXAM DESCRIPTION: DEXA AXIAL SKELETON BONE DENSITY 1 OR MORE SITES REASON FOR STUDY: 68 y/o year old F with given history of:Postmenopausal status. Patient has taken/is taking hormone replacement therapy. 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 CLINICAL INFORMATION: Current height: 67.5 inches Maximum height: 68 inches Weight: 225 pounds Risk factors: None COMPARISON: None available FINDINGS: AP LUMBAR SPINE L1-L4: Total BMD is 0.956 g/cm2 T-score is -0.8 LEFT HIP: Total BMD is 0.693 g/cm2 T-score is -2.0 Femoral neck BMD is 0.607 g/cm2 T-score is -2.2 FRAX: 10 year risk for a major osteoporotic fracture is 11 %, 10 year risk for ahip fracture is 1.8 % Per National Osteoporosis Foundation guidelines, this patient does notmeet the criteria for pharmacological treatment of patients with FRAX 10 yearmajor osteoporotic fracture risk scores of = or greater than 20% or a 10 year probability of a hip fracture = or greater than 3%, to reduce fracturerisk. Additional factors such as frequent falls are not represented in FRAX and warrant individual clinical judgment. IMPRESSION: Low bone mass REFERENCE: Bone mineral density: T-Score: Normal (T-score above or = -1.0) Low bone mass (T-score between -1.0 and -2.5) replaces thepreviously used term osteopenia Osteoporosis (T-score = or below -2.5) Z-Score: Within the expected range for age (Z-score above -2.0) Below the expected range for age (Z-score is -2.0 or below) Please see below follow up recommendations. Medical evaluation forsecondary causes of low bone mineral density may be appropriate. FRAX is a World Health Organization validated fracture risk assessmenttool that calculates a person's 10 year probability of a major osteoporosisrelated fracture and hip fracture. According to the National OsteoporosisFoundation guidelines, postmenopausal women and men age 50 or older with low bonemass and a 10 year probability of a major osteoporosis related fracture = or greater than 20% or a 10 year probability of a hip fracture = or greaterthan 3% should be considered for pharmacological treatment for the preventionof osteoporosis. For further information, including treatment recommendations, please referto the 2019 ISCD Official Positions (http://www.iscd.org) and the NOF's Clinician's Guide to Prevention and Treatment of Osteoporosis (http://www.nof.org/professionals/clinical-guidelines) THIS IS AN ELECTRONICALLY VERIFIED FINAL REPORT 08/17/2024 3:48 PM - Electronically signed by Pascale Desir M.D. TW: TW Report ID: [id number] Reading Location: [place] [address] Kamla Murphy MD IMG DXA PROCEDURES Final Result * Albumin Creatinine Ratio, Urine (03/27/2024 6:04 AM [employer]) Creatinine, ur 109 20 - 275 mg/dL [facility] Microalbumin, ur 0.9 See Note: mg/dL [facility] Comment: Reference Range: Reference Range Not established Microalbumin/creat ratio 8 <30 mg/g creat [facility] Comment: The ADA defines abnormalities in albumin excretion as follows: Albuminuria Category Result (mg/g creatinine) Normal to Mildly increased <30 Moderately increased 30-299 Severely increased > OR = 300 The ADA recommends that at least two of three specimens collected within a 3-6 month period be abnormal before considering a patient to be within a diagnostic category. Urine 03/27/2024 6:04 AM [employer] 03/27/2024 6:08 AM [employer] Abhijeet Manjarrez MD LAB URINE ORDERABLES Final Re sult [facility] [address] [place] [address] * (ABNORMAL) Hemoglobin A1c (05/05/2022 6:16 AM [employer]STING) Hgb A1C 6.4(H) <5.7 % of total Hgb [facility] Comment: For someone without known diabetes, a hemoglobin A1c value between 5.7% and 6.4% is consistent with prediabetes and should be confirmed with a follow-up test. For someone with known diabetes, a value <7% indicates that their diabetes is well controlled. A1c targets should be individualized based on duration of diabetes, age, comorbid conditions, and other considerations. This assay result is consistent with an increased risk of diabetes. Currently, no consensus exists regarding use of hemoglobin A1c for diagnosis of diabetes for children. Blood 05/05/2022 6:16 AM [employer] 05/05/2022 6:17 AM [employer] Narrative [facility] - 05/05/2022 5:20 PM [employer] FASTING:YES FASTING: YES Anca HARLEY LAB BLOOD ORDERABLES Fi nal Result [facility] [address] [place] [address] * Diabetic Eye Exam (03/30/2022) Historical Provider HEALTH MAINTENANCE Final Result * HM MAMMOGRAPHY (12/23/2021) Historical Provider HEALTH MAINTENANCE Final Result * (ABNORMAL) Lipid panel (11/07/2021 9:08 AM CDT) Cholesterol 154 <200 mg/dL [facility] HDL 47(L) > OR = 50 mg/dL [facility] Triglycerides 127 <150 mg/dL [facility] LDL 85 mg/dL (calc) [facility] Comment: Reference range: <100 Desirable range <100 mg/dL for primary prevention; <70 mg/dL for patients with CHD or diabetic patients with > or = 2 CHD risk factors. LDL-C is now calculated using the Darron-Degroot calculation, which is a validated novel method providing better accuracy than the Friedewald equation in the estimation of LDL-C. Darron MARIA et al. ELENA. 2013;310(19): 6594-5604 (http://education.myMedScore.The Eas[employer] Technology/faq/UCI882) Chol/HDL ratio 3.3 <5.0 (calc) [facility] Non-HDL, (LDL+VLDL) 107 <130 mg/dL (calc) [facility] Comment: For patients with diabetes plus 1 major ASCVD risk factor, treating to a non-HDL-C goal of <100 mg/dL (LDL-C of <70 mg/dL) is considered a therapeutic option. Blood specimen (specimen) 11/07/2021 9:08 AM CDT 11/07/2021 9:09 AM CDT Narrative [facility] - 11/08/2021 1:27 AM CDT FASTING:YES FASTING: YES Micheal Peace MD LAB BLOOD ORDERABLES Final Resu lt Performing Organization Address City/[facility] Co de Phone Number [facility] [address] [phone] * Colonoscopy (04/25/2021) Anatomical Region Laterality Modality Other Historical Provider ENDOSCOPY PROCEDURES Edit ed Result - Final * Hepatitis C antibody (04/23/2021 9:32 AM [employer]) Hep C Ab NON-REACTI VE NON-REACT DAMASO [facility] SIGNAL TO CUT-OFF 0.01 <1.00 [facility] Comment: HCV antibody was non-reactive. There is no laboratory evidence of HCV infection. In most cases, no further action is required. However, if recent HCV exposure is suspected, a test for HCV RNA (test code 85747) is suggested. For additional information please refer to http://education.Shopsy/faq/UHA25p8 (This link is being provided for informational/ educational purposes only.) Blood specimen (specimen) 04/23/2021 9:32 AM [employer] 04/23/2021 9:32 AM [employer] Micheal Peace MD LAB MICROBIOLOGY - GENERAL ORDE RABLES Final Result Performing Organization Address [facility] Co de Phone Number [facility] [id number] MISAEL Scott [phone] from Last 3 Months or Most Recently Relevant to Health Maintenance Insurance BLUE ACC CHOICE OOS [facility] MEDICARE BLUE [facility] CHO[facility] OOS Care Teams Production Support Manager Relationship Specialty Start Date End Date Micheal Peace MD PCP - General Family Medicine 07/26/23
--- OUTSIDE RECORDS SUMMARY | 2024-12-22 23:26 | XMS_ITS | Encounter Summary ---
Author Organization [facility] Address [facility] [place] [address] Care Team Providers Care Newspaper Photojournalist Name Role Phone Donnie Briones MD Unavailable [phone] Micheal Peace MD Primary Care Provider [phone] Micheal Peace MD Primary Care Provider [phone] Encounter Details Date Type Department Care Team (Late st Contact Info) Description 05/28/2022 Novadiol Message Enc [facility], [address] [address] [facility], [facility] Provider Echocardiogram Social History Tobacco Use Types Packs/Day Years [...] Coronavirus/COVID-19? No / Unsure 05/27/2022 9:57 AM CHIEF MECHANICAL ENGINEER documented as of this encounter Functional Status [...] Date Author Status No 07/14/2019 6:20 PM CHIEF MECHANICAL ENGINEER Goldie Valencia RN Active documented in this encounter Plan of Treatment Upcoming Encounters Date Type Department Care Team (Late st Contact Info) Description 01/01/2025 8:[address] [facility] Mammography [address] [place], [place] [phone] Kamla Murphy MD 1414 [facility] [address] [place] [address] documented as of this encounter Visit Diagnoses Not on filedocumented in this encounter Care Teams Newspaper Photojournalist Relationship Specialty Start Date End Date Micheal Peace MD 3 [facility] [address] [place] [phone] PCP - General FAMILY PRACTICE 07/26/20 11/29/22 Micheal Peace MD [address] [address] PCP - [facility] PRACTICE 11/30/22 Donnie Briones MD [address] [address] [place] [facility] Special Procedures Technologist CARDIOVASCULAR DISEASE 05/11/19 documented as of this encounter
[2024-12-22 23:31] VITALS: BP 211/119; PULSE 118; RESP 20; TEMP 36.4; O2SAT 97
[2024-12-23 00:01] VITALS: BP 207/86; PULSE 87; RESP 17; O2SAT 97
[2024-12-23] MEDS: TETANUS,DIPHTHERIA,AC PERTUSSIS ADULT (0.5 ML) BOOSTRIX IM (00:09)
--- NOTE | 2024-12-23 00:10 | ED.WOUNDLAC ---
HPI - Wound/Laceration General Chief Complaint: Wound/Laceration Stated Complaint: laceration to toe Time Seen by Provider: 12/22/24 23:30 Source: patient Mode of arrival: ambulatory Limitations: no limitations History of Present Illness HPI narrative: This is a 69 year old female that presents to the ER for laceration to the right 4th toe. Reports she accidentally cut her toe trying to trim her nails. Reports they were having difficulty getting bleeding to stop which prompted her to be seen. She takes clopidogrel daily. Unsure of last tetanus vaccination. Related Data Home Medications ?Medication ?Instructions ?Recorded ?Confirmed ?Last Taken ?Type aspirin 81 mg tablet,delayed 81 mg PO DAILY 11/07/19 04/25/21 Unknown History release (Adult Low Dose Aspirin) ergocalciferol (vitamin D2) 1,250 1,250 mcg PO WEEKLY 11/07/19 04/25/21 Unknown History mcg (50,000 unit) capsule lisinopril 10 mg tablet 10 mg PO DAILY 11/07/19 04/25/21 Unknown History carvedilol 3.125 mg tablet 3.125 mg PO BID 04/16/21 04/25/21 04/25/21 History clopidogrel 75 mg tablet 75 mg PO DAILY 04/16/21 04/25/21 Unknown History estradiol 0.01% (0.1 mg/gram) 1 applic vaginal 2XW 04/16/21 04/25/21 Unknown History vaginal cream insulin glargine 100 unit/mL (3 14 unit subcut QPM 04/16/21 04/25/21 Unknown History mL) subcutaneous pen (Lantus Solostar U-100 Insulin) insulin lispro 200 unit/mL (3 mL) See Rx Instructions .Route .COMPLEX 04/16/21 04/25/21 Unknown History subcutaneous pen (Humalog KwikPen U-200 Insulin) Allergies Allergy/AdvReac Type Severity Reaction Status Date / Time codeine Allergy Severe Dizziness Verified 04/25/21 06:28 Sulfa (Sulfonamide Allergy Severe Difficulty Verified 04/25/21 06:28 Antibiotics) Breathing Review of Systems Review of Systems: All systems reviewed & are unremarkable except as noted in HPI and below PMFSH Past Medical History Medical History (Updated 12/23/24 @ 00:12 by Lisa Linares PA-C) Hyperlipidemia Hypotension GIL (generalized anxiety disorder) Vaginal prolapse Surgical History Surgical History History of neck surgery History of hysterectomy Family History Family History Mother Family history of lung cancer Social History Social History Smoking packs per day: 1 Smoking cigarettes per day: 20.0 Years smoked: 20 Smoking pack-years: 20.00 Smoking status: Former smoker Tobacco type: cigarettes Second hand tobacco smoke exposure: No Alcohol intake: never Substance use: never Substance use type: does not use Living arrangements: with family 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 HEAD: Normocephalic, atraumatic. EYES: EOMI. EXTREMITIES: Normal range of motion. No edema. Small skin avulsion to the distal right 4th phalanx SKIN: Warm, dry, no rash. NEURO: No focal deficits. Alert and oriented x3. PSYCH: Normal mood and affect Course Vital Signs Vital signs: Vital Signs Temperature 97.6 F 12/22/24 23:31 Pulse Rate 118 H 12/22/24 23:31 Respiratory Rate 20 12/22/24 23:31 Blood Pressure 211/119 H 12/22/24 23:31 Pulse Oximetry 97 12/22/24 23:31 Oxygen Delivery Room Air 12/22/24 23:31 Temperature 97.6 F 12/22/24 23:31 Pulse Rate 87 12/23/24 00:01 Respiratory Rate 17 12/23/24 00:01 Blood Pressure 207/86 H 12/23/24 00:01 Pulse Oximetry 97 12/23/24 00:01 Oxygen Delivery Room Air 12/22/24 23:31 Critical Care Time Critical Care Time Critical Care Time: No Discharge Plan Discharge Clinical Impression: Avulsion of skin Patient Disposition: Home Condition: Stable Instructions: Skin Avulsion (ED) Patient Language: Cape Verdean Prescriptions: No Action aspirin [Adult Low Dose Aspirin] 81 mg tablet,delayed release (DR/EC) 81 mg PO DAILY lisinopril 10 mg tablet 10 mg PO DAILY ergocalciferol (vitamin D2) 1,250 mcg (50,000 unit) capsule 1,250 mcg PO WEEKLY clopidogrel 75 mg tablet 75 mg PO DAILY carvedilol 3.125 mg tablet 3.125 mg PO BID Lantus Solostar U-100 Insulin 100 unit/mL (3 mL) insulin pen 14 unit SUBCUT QPM Patient Comments: TAKES EVERY NIGHT AT 2000 Humalog KwikPen Insulin 200 unit/mL (3 mL) insulin pen See Rx Instructions .ROUTE .COMPLEX Rx Instructions: SLIDING SCALE estradiol 0.01 % (0.1 mg/gram) cream 1 applic VAGINAL 2XW atorvastatin 40 mg tablet 40 mg PO DAILY Qty: 90 1RF lorazepam 1 mg tablet 1 mg PO TID PRN (Reason: anxiety) Qty: 90 1RF Rx Instructions: take 0.5 to 1 tablet by oral route 3 times every day as needed Follow-up/Referrals: Kobi,Micheal Baez MD [Primary Care Provider] -
--- OUTSIDE RECORDS SUMMARY | 2024-12-23 00:24 | XMS_ITS | Encounter Summary ---
Author Organization [facility] Address Critical access hospital[address] [place] [address] Care Team Providers Care Deburr Technician Name Role Phone Luz Maria Jain MD Primary Care Provider [phone] Donnie Briones MD Unavailable [phone] Micheal Peace MD Primary Care Provider [phone] Micheal ePace MD Primary Care Provider [phone] Encounter Details Date Type Department Care Team (Late st Contact Info) Description 07/12/2019 Hospital Orders Only [facility] Manager [place], [place] [phone] Theo Ordoñez MD Three [facility]. [address] [phone] Social History Tobacco Use Types Packs/Day Years [...] or making decisions? No 07/14/2019 6:20 PM PROJECT FINANCE ANALYST Goldie Valencia R N Active documented in this encounter Plan of Treatment Upcoming Encounters Date Type Department Care Team (Late st Contact Info) Description 01/01/2025 8:20 AM CDT Appointment [facility] Mammography [address] [place] [address] Kamla Murphy MD [address] [facility] [address] [place] [address] documented as of this encounter Visit Diagnoses Not on filedocumented in this encounter Care Teams Deburr Technician Relationship Specialty Start Date End Date Luz Maria Jain MD PCP - General FAMILY PRACTICE 10/06/18 07/25/20 Micheal Peace MD 3 [facility] [address] [place] [address] PCP - General FAMILY PRACTICE 07/26/20 11/29/22 Micheal Peace MD 3 [facility] [address] [place] [address] PCP - General FAMILY PRACTICE 11/30/22 Donnie Briones MD 3 [facility] Suite [facility] [place] [address] [place] [employer] [place] CARDIOVASCULAR DISEASE 05/11/19 documented as of this encounter
--- OUTSIDE RECORDS SUMMARY | 2024-12-23 00:24 | XMS_ITS | Encounter Summary ---
Author Organization [facility] Address [facility] [place] [address] Care Team Providers Care Silver Buffer Name Role Phone Donnie Briones MD Unavailable [phone] Micheal Peace MD Primary Care Provider [phone] Micheal Peace MD Primary Care Provider [phone] Encounter Details Date Type Department Care Team (Late st Contact Info) Description 05/26/2022 Abstract [facility] [address] Leti Fung MA Social History Tobacco Use [...] Coronavirus/COVID-19? No / Unsure 05/27/2022 9:57 AM CHAIR INSPECTOR AND LEVELER documented as of this encounter Functional Status [...] Date Author Status No 07/14/2019 6:20 PM CHAIR INSPECTOR AND LEVELER Goldie Valencia RN Active documented in this encounter Plan of Treatment Upcoming Encounters Date Type Department Care Team (Late st Contact Info) Description 01/01/2025 8:20 AM CDT Appointment [facility] Mammography [address] [place], [place] [phone] Kamla Murphy MD [address] [address] documented as of this encounter Procedures Procedure [...] on filedocumented in this encounter Care Teams Silver Buffer Relationship Specialty Start Date End Date Micheal Peace MD 3 [facility] [address] [place] [address] PCP - General FAMILY PRACTICE 07/26/20 11/29/22 Micheal Peace MD [address] [address] PCP - General FAMILY PRACTICE 11/30/22 Donnie Briones MD 3 [facility] [address] [place] [address] [place] Silk Conditioner CARDIOVASCULAR DISEASE 05/11/19 documented as of this encounter
--- OUTSIDE RECORDS SUMMARY | 2024-12-23 00:24 | XMS_ITS | Encounter Summary ---
Author Organization [facility] Address [facility]6 [place] [address] Care Team Providers Care Public Finance Specialist Name Role Phone Donnie Briones MD Unavailable [phone] Micheal Peace MD Primary Care Provider [phone] Micheal Peace MD Primary Care Provider [phone] Encounter Details Date Type Department Care Team (Late st Contact Info) Description 03/14/2021 Abstract [facility] [address] Leti Fung MA Social History Tobacco Use [...] Date Author Status No 07/14/2019 6:20 PM SALES DEVELOPMENT EXECUTIVE Goldie Valencia RN Active documented in this encounter Plan of Treatment Upcoming Encounters Date Type Department Care Team (Late st Contact Info) Description 01/01/2025 8:20 AM CDT Appointment [facility] Mammography [address] [place], [place] [phone] Kamla Murphy MD [address] [address] documented as of this encounter Procedures Procedure [...] Final Result * (ABNORMAL) CREATININE (03/13/2021) Pathologist [facility] CREATININE S/P/B 1.90(A) 0.5 - 1.0 EGFR NON-AFR. AMER. 32 <=90 EGFR AFR. AMER. 28 <=90 03/13/2021 us Doc [facility] LABORATORY Final Result * BUN (OUTSIDE LAB) (03/13/2021) BUN 45 03/13/2021 us Doc [facility] Abstract LAB-OUTSIDE/ABSTRACTED Final Result documented in this encounter Visit Diagnoses Not on filedocumented in this encounter Care Teams Public Finance Specialist Relationship Specialty Start Date End Date Micheal Peace MD [address] [address] PCP - General FAMILY PRACTICE 07/26/20 11/29/22 Micheal Peace MD 3 [facility] [address] [place] [address] PCP - General FAMILY PRACTICE 11/30/22 Donnie Briones MD 3 [facility] [address] [place] [address] [place] Senior Java [id number] Developer CARDIOVASCULAR DISEASE 05/11/19 documented as of this encounter
--- OUTSIDE RECORDS SUMMARY | 2024-12-23 00:24 | XMS_ITS | Encounter Summary ---
Author Organization [facility] Address [facility] [place] [address] Care Team Providers Care Floral Design Teacher Name Role Phone Luz Maria Jain MD Primary Care Provider [phone] Donnie Briones MD Unavailable [phone] Micheal Peace MD Primary Care Provider [phone] Micheal Peace MD Primary Care Provider + [phone] Encounter Details Date Type Department Care Team (Late Contact Info) Description 06/14/2019 Abstract [facility], [address] [address] Leti Fung MA Social History [...] Info) Description 01/01/2025 8:20 AM CDT Appointment [facility] Mammography [address] [place], [place] [phone] Kamla Murphy MD [address] [place] [address] documented as of this encounter Procedures Procedure [...] * (ABNORMAL) BASIC METABOLIC PANEL (07/05/2019) Pathologist [facility] SODIUM S/P/B 138 POTASSIUM S/P/B 5.1 CO2 23 CHLORIDE S/P/B 107 GLUCOSE 157 mg/dL CALCIUM S/P/B 9.0 BUN 30 CREATININE S/P/B 1.58(A) 0.5 - 1.0 EGFR AFR. AMER. 41 <=90 EGFR NON-AFR. AMER. 35 <=90 07/05/2019 us Doc [facility] Abstract LABORATORY Final Result * PROTIME (OUTSIDE LAB) (06/13/2019) Pathologist [facility] PROTIME 10.0 INR 1.0 06/13/2019 Doc [facility] Abstract LAB-OUTSIDE/ABSTRACTED Final Result * CBC (OUTSIDE LAB) (06/13/2019) Pathologist [facility] WBC 4.6 3.8 - 10.8 HGB 12.7 11.7 - 15.5 HCT 38.2 35.0 - 45.0 PLT 195 140 - 400 06/13/2019 Doc [facility] Abstract LAB-OUTSIDE/ABSTRACTED Final Result * (ABNORMAL) BASIC METABOLIC PANEL (06/13/2019) Pathologist [facility] SODIUM S/P/B 140 135 - 146 POTASSIUM [...] on filedocumented in this encounter Care Teams Floral Design Teacher Relationship Specialty Start Date End Date Luz Maria Jain MD PCP - General FAMILY PRACTICE 10/06/18 07/25/20 Micheal Peace MD 3 [facility] [address] [place] [address] PCP - General FAMILY PRACTICE 07/26/20 11/29/22 Micheal Peace MD 3 [facility] [address] [place] [address] PCP - General FAMILY PRACTICE 11/30/22 Donnie Briones MD 3 [facility] [address] [place] [address] [place] Water Meter Mechanic CARDIOVASCULAR DISEASE 05/11/19 documented as of this encounter
--- OUTSIDE RECORDS SUMMARY | 2024-12-23 00:24 | XMS_ITS | Clinical Summary ---
Author Organization [facility] Address [address] [place] [address] Care Team Providers Care Pickling Machine Operator Name Role Phone Donnie Briones MD Unavailable [phone] Micheal Peace MD Primary Care Provider [phone] Allergies Active Allergy Reactions Criticality Noted Date [...] 02/19/20 20 Active Lancets (ONETOUCH DELICA PLUS [id number]) Misc TEST BLOOD SUGARS 3 TIMES DAILY 02/19/20 Active Blood Glucose Monitoring Suppl (RiplTOUCH VERIO FLEX SYSTEM) w/Device Kit see administration instructions. 02/19/20 Active ONETOUCH VERIO test strip TEST BLOOD SUGARS 3 TIMES DAILY 02/19/20 Active VITAMIN D2, ERGOCALCIFEROL , 87140 UNITS capsuleIndicat ions:Vitamin D deficiency TAKE 1 [...] hyperlipidemia 07/25/2020 Nonsustained paroxysmal vent ricular tachycardia ([facility]) 07/25/2020 Supraventricular tachycardia, nonsustained ([facility]) 07/25/2020 Type 2 diabetes mellitus wit h kidney complication, without long-term current use of insulin ([facility]) 02/23/2020 CVA (cerebral vascular accident) ([facility]) 02/19/2020 PIERRE (acute kidney injury) 02/17/2020 Coronary artery disease invo lving [place] coronary artery of [place] heart without angina pectoris 09/07/2019 Nonrheumatic mitral [...] Comments Blood Pressure 124/72 06/25/2023 11:04 AM EXPERIMENTAL PSYCHOLOGIST Pulse 68 06/25/2023 11:04 AM EXPERIMENTAL PSYCHOLOGIST Temperature 36.5 C (97.7 F) 06/26/2022 8:40 AM EXPERIMENTAL PSYCHOLOGIST Respiratory Rate 16 06/26/2022 8:40 AM EXPERIMENTAL PSYCHOLOGIST Oxygen Saturation 98% 06/25/2023 11: 04 AM EXPERIMENTAL PSYCHOLOGIST Inhaled Oxygen Concentration - - Weight 96.1 kg (211 lb 14.4 oz) 024 11:04 AM EXPERIMENTAL PSYCHOLOGIST Height 172.7 cm (5' 8) 06/25/2023 11:0 4 AM EXPERIMENTAL PSYCHOLOGIST Body Mass Index 32.22 06/25/2023 11:04 AM EXPERIMENTAL PSYCHOLOGIST Plan of Treatment Upcoming Encounters Date Type Department Care Team (Late st Contact Info) Description 01/01/2025 8:20 AM CDT Appointment [facility] Mammography [address] [place], [place] [phone] Shane Murphy MD [address] [phone] Health Maintenance Due Date Last Done Comments [...] 8:09 AM CDT Coronary artery disease involving [place] coronary artery of [place] heart without angina pectoris Mixed hyperlipidemia Hypertension, [...] 160 <200 MG/DL 12/08/2022 8:54 AM CDT [facility] TRIGLYCERIDES 164(H) <150 MG/DL 12/08/2022 8:54 AM CDT [facility] HDL 50 >40.0 MG/DL 12/08/2022 8:54 AM CDT [facility] LDL (CALCULATED) 77 <100 MG/DL 12/08/2022 8:54 AM CDT [facility] NON HDL CHOLESTEROL 110 <130 MG/DL 12/08/2022 8:54 AM CDT [facility] CHOL/HDL RATIO 3.2 0.0 - 4.5 12/08/2022 8:54 AM CDT [facility] VLDL CALCULATION 33 5 - 55 MG/DL 12/08/2022 8:54 AM CDT [facility] LIPID INTERPRETATION 12/08/2022 8:54 AM CDT [facility] Comment: NIH CONCENSUS REPORT RECOMMENDATIONS: ADULT CHILD LOW RISK: CHOLESTEROL <200 <170 TRIGLYCERIDE <150 --- HDL >=60 --- LDL <100 <110 BORDERLINE: CHOLESTEROL 200-239 170-199 TRIGLYCERIDE 150-199 --- HDL 40-59 --- LDL 100-159 110-129 HIGH RISK: CHOLESTEROL >=240 >=200 TRIGLYCERIDE >=200 --- HDL <40 --- LDL >=160 >=130 12/08/2022 8:09 AM CDT Donnie Briones MD LABORATORY Final Result [facility] [address] [place] [address], * HEMOGLOBIN, GLYCOSYLATED (06/27/2020) HGB A1C 6.1 % 06/27/2020 Doc [facility] Abstract LABORATORY Final Result from Last 3 Months or Most Recently Relevant to Health Maintenance Insurance [employer] Advance Directives * Full Code (Latest Code [...] 3:37 PM 07/14/2019 9:15 PM Care Teams Pickling Machine Operator Relationship Specialty Start Date End Date Micheal Peace MD 3 [facility] [address] [place] [address] PCP - General FAMILY PRACTICE 11/30/22 Donnie Briones MD 3 [facility] [address] [place] [address] [place] Brand Marketing Specialist CARDIOVASCULAR DISEASE 05/11/19
--- OUTSIDE RECORDS SUMMARY | 2024-12-23 00:24 | XMS_ITS | Continuity of Care Document ---
Author Organization [facility] Address [address] [place] [address] [address] [place] [address] Phone Care Team Providers Care Protective Signal Operations Supervisor Name Role Phone Ramon OD, Contreras Unavailable Unavailable Advance Directives Directive Yes / No Effective Date File Name No Information Encounters Encounter Description Practice Location Reason(s) For Visit Diagnoses Date Provider Providers Copied on Encounter [facility], [address] [place] [address] [address], [place], [place], [id number], [place] tel:[phone] [facility] No Information 8-200 6 Ramon OD Contreras. [address] , [address], [place], [address], [place]. tel:[phone] Family History Family Member Type Diagnosis Age At Onset No Information Payers Payer name Insurance type Covered republican ID Authoriza tion(s) [employer] [place] [id number] Social History Type Description Quantity Date Captured [...]
--- OUTSIDE RECORDS SUMMARY | 2024-12-23 00:24 | XMS_ITS | Encounter Summary ---
Author Organization [facility] Address [facility] [place] [address] Care Team Providers Care Peer Tutor Name Role Phone Luz Maria Jain MD Primary Care Provider [phone] Donnie Briones MD Unavailable [phone] Micheal Peace MD Primary Care Provider [phone] Micheal Peace MD Primary Care Provider + [phone] Encounter Details Date Type Department Care Team (Late Contact Info) Description 05/22/2019 Abstract [facility], [address] [address] Leti Fung MA Social History [...] Info) Description 01/01/2025 8:20 AM CDT Appointment [facility] Mammography [address] [place], [place] [phone] Kamla Murphy MD [address] [place] [address] documented as of this encounter Procedures Procedure [...] RENIN ACTIVITY, PLASMA (OUTSIDE LAB) (05/29/2019) Pathologist [facility] PLASMA RENIN ACTIVITY 54.72 0.25 - 5.82 05/29/2019 us Doc [facility] Abstract LAB-OUTSIDE/ABSTRACTED Final Result * ALDOSTERONE (05/29/2019) Pathologist [facility] ALDOSTERONE S/P/B 73 Comment:upright< or = 28ng/d l, Supine 3-16 ng/dl 05/29/2019 us Doc [facility] Abstract LABORATORY Final Result * (ABNORMAL) BASIC METABOLIC PANEL (05/29/2019) Pathologist [facility] SODIUM S/P/B 139 135 - 146 POTASSIUM [...] * (ABNORMAL) COMPREHENSIVE METABOLIC PANEL (05/24/2019) Pathologist [facility] SODIUM S/P/B 139 POTASSIUM S/P/B 2.7 3.5 [...] Final Result * LIPID PANEL (05/24/2019) Pathologist [facility] CHOLESTEROL 180 HDL 56 TRIGLYCERIDES 156 NON HDL CHOLESTEROL 124 LDL (CALCULATED) 98 05/24/2019 us Doc [facility] LABORATORY Edited Resul t - Final * CBC (OUTSIDE LAB) (05/24/2019) Pathologist [facility] WBC 5.4 HGB 16.0 HCT 45.6 PLT 183 05/24/2019 us Doc [facility] Abstract LAB-OUTSIDE/ABSTRACTED Final Result * THYROID STIM HORMONE, TSH (05/24/2019) Pathologist [facility] TSH 1.43 05/24/2019 us Doc [facility] Abstract LABORATORY Final Result * (ABNORMAL) COMPREHENSIVE METABOLIC PANEL (04/13/2018) Pathologist [facility] SODIUM S/P/B 142 POTASSIUM S/P/B 3.9 CO2 [...] Final Result * LIPID PANEL (04/13/2018) Pathologist [facility] CHOLESTEROL 160 HDL 54 TRIGLYCERIDES 73 NON [...] on filedocumented in this encounter Care Teams Peer Tutor Relationship Specialty Start Date End Date Luz Maria Jain MD PCP - General FAMILY PRACTICE 10/06/18 07/25/20 Micheal Peace MD 3 [facility] [place] [address] [place] [address] PCP - General FAMILY PRACTICE 07/26/20 11/29/22 Micheal Peace MD 3 [facility] [place] [address] [place] [address] PCP - General FAMILY PRACTICE 11/30/22 Donnie Briones MD 3 [facility] [place] [address] [place] [phone] [place] Ammunition Supervisor CARDIOVASCULAR DISEASE 05/11/19 documented as of this encounter
--- OUTSIDE RECORDS SUMMARY | 2024-12-23 00:24 | XMS_ITS | Clinical Summary ---
Author Organization [facility] Address [address] [place] [address] Care Team Providers Care Senior National Account Manager Name Role Phone Micheal Peace MD Primary Care Provider [phone] Allergies Active Allergy Reactions Criticality Noted Date [...] disease, with long-term current use of insulin ([facility]) 1 Device by Not Applicable [...] glucose scanning reader (FreeStyle Jaleel 14 Day [place]) miscIndications :Type 2 diabetes mellitus with stage 3b chronic kidney disease, with long-term current use of insulin ([facility]) As dir 1 each 3 04/14/20 22 Active flash glucose sensor (FreeStyle Jaleel 2 Sensor) kitIndications: Type 2 diabetes mellitus with stage 3b chronic kidney disease, without long-term current use of insulin ([facility]) As directed 1 kit 04/21/20 22 Active venlafaxine XR (EFFEXOR-XR) 37.5 mg 24 hr capsuleIndicati ons:Generalized anxiety disorder,Major depressive disorder, recurrent episode, moderate (HCC) Take 1 capsule (37.5 mg total) by mouth daily 30 capsule 1 07/15/19 23 Active blood-glucose sensor deviceIndicatio ns:Type 2 diabetes mellitus with stage 3b chronic kidney disease, with long-term current use of insulin ([facility]) Jaleel 3 Apply sensor once [...] 04/23/2021 Assessment & Plan (04/23/2021 9:22 AM RETAIL MORTGAGE BANKER): - patient reports satisfactory improvement in her urinary symptoms since decreasing fluid intake - she was advised to call the office if any worsening in symptoms Constipation 04/23/2021 Assessment & Plan (04/23/2021 9:12 AM RETAIL MORTGAGE BANKER): - per patient well managed with stool softener, we discussed switching to MiraLax. Patient would prefer to continue with stool softener at this time. 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 05/09/2020 Mitral regurgitation 05/09/2020 Type 2 diabetes mellitus wit h stage 3b chronic kidney disease, without long-term current use of insulin 02/23/2020 CVA (cerebral vascular accident) 02/19/2020 PIERRE (acute kidney injury) 02/17/2020 Coronary artery disease involving alturas heart 0 09/07/2019 Hypertension 05/12/2019 Encounters Date Type Department Care Team Description 10/24/2024 Results Follow-Up [facility] Nephrology at [address] [address] Abhijeet Manjarrez MD Basic metabolic panel 10/06/2024 Results Follow-Up [facility] Obstetrical Gynecology [address] [place] [phone] Amy Manjarrez MD Vitamin D 25 hydroxy 10/05/2024 10:30 AM CDT Lab [facility] [address] [place] [id number] Low bone mass 09/22/2024 10:45 AM CDT Office Visit [facility] Nephrology at [address] [address] Abhijeet Manjarrez MD Stage 3b chronic kidney [...] on file Legal Sex Female 8:34 AM RETAIL MORTGAGE BANKER Gender Identity Female 07/22/2022 8:47 PM CDT [...] CDT Respiratory Rate 18 07/14/2022 7:56 AM RETAIL MORTGAGE BANKER Oxygen Saturation 98% 07/14/2022 7:56 AM RETAIL MORTGAGE BANKER Inhaled Oxygen Concentration - - Weight 94.4 [...] CREATININE RATIO, URINE Routine 03/27/2024 6:04 AM RETAIL MORTGAGE BANKER Stage 3b chronic kidney disease (HCC) HEMOGLOBIN A1C Routine 05/05/2022 6:16 AM RETAIL MORTGAGE BANKER Type 2 diabetes mellitus with stage 3b chronic kidney disease, with long-term current use of insulin (HCC) DIABETIC EYE EXAM Routine 03/30/2022 HM MAMMOGRAPHY Routine 12/23/2021 LIPID PANEL Routine 11/07/2021 9:08 AM CDT Dyslipidemia with elevated low density lipoprotein (LDL) cholesterol and abnormally low high density lipoprotein cholesterol COLONOSCOPY Routine 04/25/2021 HEPATITIS C ANTIBODY Routine 04/23/2021 9:32 AM RETAIL MORTGAGE BANKER Encounter for hepatitis C screening test for [...] ORDERABLES Final Re sult [facility] [address] [address] * (ABNORMAL) Vitamin D 25 hydroxy (10/05/2024 10:45 AM CDT) Vitamin D 25-OH 21.0(L) 30.0 - 80.0 ng/mL Blood 10/05/2024 10:4 5 AM CDT 10/05/2024 2:26 PM CDT us Kamla Murphy MD LAB BLOOD ORDERABLES Zari leonardo Result [facility] [address] [facility] Department [place] [address] * Dexa Axial Skeleton Bone Density 1 Or 2 Site (08/16/2024 7:45 AM CDT) Anatomical Region Laterality Modality Body N/A Mammography 08/17/2024 3:47 PM CDT Narrative 08/17/2024 3:48 PM CDT EXAM DESCRIPTION: DEXA AXIAL SKELETON BONE DENSITY 1 OR MORE SITES REASON FOR STUDY: 68 y/o year old F with given history of: Postmenopausal status. Patient has taken/is taking hormone replacement therapy. Plaque Maker/Model: [employer] A (S/N [id number]) Facility LSC value of 0.022 for the [...] Pascale Desir M.D. TW: TW Report ID: [id number] Reading Location: [place] [address] Procedure Note Pascale Desir MD - 08/17/2024 EXAM DESCRIPTION: DEXA AXIAL SKELETON BONE DENSITY 1 OR MORE SITES REASON FOR STUDY: 68 y/o year old F with given history of:Postmenopausal status. Patient has taken/is taking hormone replacement therapy. Plaque Maker/Model: [employer] A (S/N [id number]) Facility LSC value of 0.022 for the [...] Pascale Desir M.D. TW: TW Report ID: [id number] Reading Location: [place] [address] Kamla Murphy MD IMG DXA PROCEDURES Final Result * Albumin Creatinine Ratio, Urine (03/27/2024 6:04 AM RETAIL MORTGAGE BANKER) Creatinine, ur 109 20 - 275 mg/dL [...] a diagnostic category. Urine 03/27/2024 6:04 AM RETAIL MORTGAGE BANKER 03/27/2024 6:08 AM RETAIL MORTGAGE BANKER Abhijeet Manjarrez MD LAB URINE ORDERABLES Final Re sult [email or web address] [address] [place] [address] * (ABNORMAL) Hemoglobin A1c (05/05/2022 6:16 AM RETAIL MORTGAGE BANKER) Hgb A1C 6.4(H) <5.7 % of total Hgb [facility] Comment: For someone without known [...] diabetes for children. Blood 05/05/2022 6:16 AM RETAIL MORTGAGE BANKER 05/05/2022 6:17 AM RETAIL MORTGAGE BANKER Narrative [facility] - 05/05/2022 5:20 PM RETAIL MORTGAGE BANKER FASTING:YES FASTING: YES Anca HARLEY LAB BLOOD ORDERABLES Fi nal Result [facility] [address] [place] [address] * Diabetic Eye Exam (03/30/2022) Historical Provider [...] LDL-C. Darron MARIA et al. ELENA. 2013;310(19): 1821-1801 (http://education.Equity Endeavor.Acacia Living/faq/BSL303) Chol/HDL ratio 3.3 <5.0 (calc) [facility] [...] ORDERABLES Final Resu lt Performing Organization Address [facility] Co de Phone Number [facility] [address] [address] [address] * Colonoscopy (04/25/2021) Anatomical Region Laterality Modality Other Historical Provider ENDOSCOPY PROCEDURES Edit ed Result - Final * Hepatitis C antibody (04/23/2021 9:32 AM RETAIL MORTGAGE BANKER) Hep C Ab NON-REACTI VE NON-REACT DAMASO [facility] SIGNAL TO CUT-OFF 0.01 <1.00 [facility] Comment: HCV antibody was non-reactive. There is no laboratory evidence of HCV infection. In most cases, no further action is required. However, if recent HCV exposure is suspected, a test for HCV RNA (test code 49021) is suggested. For additional information please refer to http://education.YooDeal/faq/JIR17e4 (This link is being provided for informational/ educational purposes only.) Blood specimen (specimen) 04/23/2021 9:32 AM RETAIL MORTGAGE BANKER 04/23/2021 9:32 AM RETAIL MORTGAGE BANKER Micheal Peace MD LAB MICROBIOLOGY - GENERAL ORDE RABLES Final Result Performing Organization Address [facility] Co de Phone Number [facility] [address] [phone] from Last 3 Months or Most Recently Relevant to Health Maintenance Insurance BLUE ACC CHOICE OOS [facility] MEDICARE BLUE [facility] CHOICE OOS Care Teams Senior National Account Manager Relationship Specialty Start Date End Date Micheal Peace MD PCP - General Family Medicine 07/26/23
--- OUTSIDE RECORDS SUMMARY | 2024-12-23 00:24 | XMS_ITS | Encounter Summary ---
Author Organization [facility] Address [facility] [place] [address] Care Team Providers Care Sales Agent Casualty Insurance Name Role Phone Donnie Briones MD Unavailable [phone] Micheal Peace MD Primary Care Provider [phone] Micheal Peace MD Primary Care Provider [phone] Encounter Details Date Type Department Care Team (Late st Contact Info) Description 03/10/2021 Hospital Orders Only [facility] Team Otr Truck Driver [facility] [place], [place] [phone] Ankit Bahena MD Three [facility]. [address] [place] [address] Social History Tobacco Use Types [...] AM CDT Brianna Garcia RN Active * [place] Suicide Severity Rating Scale (Screener/Recent Self-Report) Question [...] Info) Description 01/01/2025 8:20 AM CDT Appointment [facility] Mammography [address] [place], [place] [phone] Kamla Murphy MD [address] [place], [place] [phone] documented as of this encounter Visit Diagnoses Not on filedocumented in this encounter Care Teams Sales Agent Casualty Insurance Relationship Specialty Start Date End Date Micheal Peace MD 3 [facility] [address] [place] [phone] PCP - General FAMILY PRACTICE 07/26/20 11/29/22 Micheal Peace MD 3 [facility] [address] [place] [phone] PCP - General FAMILY PRACTICE 11/30/22 Donnie Briones MD 3 [facility] [address] [place] [address] [place] Rubber Insulator CARDIOVASCULAR DISEASE 05/11/19 documented as of this encounter
--- OUTSIDE RECORDS SUMMARY | 2024-12-23 00:24 | XMS_ITS | Encounter Summary ---
Author Organization [facility] Address [facility] [place] [address] Care Team Providers Care Spinning Room Worker Name Role Phone Donnie Briones MD Unavailable [phone] Micheal Peace MD Primary Care Provider [phone] Micheal Peace MD Primary Care Provider [phone] Encounter Details Date Type Department Care Team (Late st Contact Info) Description 05/28/2022 [employer] Message Enc [facility], [address] [address] [facility] Provider Echocardiogram Social History Tobacco Use Types [...] Coronavirus/COVID-19? No / Unsure 05/27/2022 9:57 AM GROUTER HELPER documented as of this encounter Functional Status [...] Date Author Status No 07/14/2019 6:20 PM GROUTER HELPER Goldie Valencia RN Active documented in this encounter Plan of Treatment Upcoming Encounters Date Type Department Care Team (Late st Contact Info) Description 01/01/2025 8:20 AM CDT Appointment [facility] Mammography [address] [place], [place] [phone] Kamla Murphy MD [address] [facility] [address] [place] [address] documented as of this encounter Visit Diagnoses Not on filedocumented in this encounter Care Teams Spinning Room Worker Relationship Specialty Start Date End Date Micheal Peace MD 3 [facility] [address] [place] [phone] PCP - General FAMILY PRACTICE 07/26/20 11/29/22 Micheal Peace MD [address] [phone] PCP - [facility] PRACTICE 11/30/22 Donnie Briones MD [address] [address] [place] Care Worker CARDIOVASCULAR DISEASE 05/11/19 documented as of this encounter
[2024-12-23 01:04] VITALS: O2SAT 94
[2024-12-23 01:41] VITALS: BP 184/88; PULSE 87; RESP 17; O2SAT 98
[2024-12-23 01:48] VITALS: O2SAT 95
[2024-12-23 02:03] VITALS: BP 184/88; PULSE 64; RESP 16; TEMP 36.5; O2SAT 96
== END 2024-12-23 02:05 | disposition home or self-care (01) ==
PROVIDERS: Emergency Provider Physician Assistant; PCP Family Medicine
DX: S91.114A Laceration without foreign body of right lesser toe(s) without damage to nail, initial encounter (principal); Z23 Encounter for immunization; E78.5 Hyperlipidemia, unspecified; F41.1 Generalized anxiety disorder; Z87.891 Personal history of nicotine dependence; Z79.82 Long term (current) use of aspirin; Z79.02 Long term (current) use of antithrombotics/antiplatelets; Z79.4 Long term (current) use of insulin; Z79.899 Other long term (current) drug therapy; W26.8XXA Contact with other sharp object(s), not elsewhere classified, initial encounter
CPT/HCPCS: 90471; 90715; 99282